=== PATIENT | female | born 1965 | race Caucasian/White ===

== ENCOUNTER → 2016-08-30 | Outpatient (CLI) | payer OTHER ==
[~2016-08-30] MED LIST: ATEN50TA8 PO; LISI20TA PO; MULTTAB58 PO; POTA-335 PO; SIMV20TA2 PO; SYN125 PO
--- NOTE | 2016-08-31 15:18 | MAMMOGRAPHY REPORT ---
BILATERAL DIGITAL SCREENING MAMMOGRAM TOMOSYNTHESIS WITH CAD: 08/30/2016 CLINICAL HISTORY: Routine screening. Patient has no complaints. TECHNIQUE: Breast tomosynthesis in addition to standard 2D mammography was performed. Current study was also evaluated with a Computer Aided Detection (CAD) system. COMPARISON: Comparison is made to exams dated: 07/10/2015 mammogram, 04/25/2013 mammogram, 07/01/2014 m ammogram, 03/28/2012 mammogram, 02/24/2011 mammogram, and 09/16/2009 mammogram - [facility]. BREAST COMPOSITION: There are scattered areas of fibroglandular density in both breasts. FINDINGS: There are benign-appearing rodlike, punctate and rim calcifications in the breasts. No conroy spicious mass, architectural distortion or cluster of new, suspicious microcalcifications is seen. IMPRESSION: ACR BI-RADS CATEGORY 1: NEGATIVE There is no mammographic evidence of malignancy. A 1 year screening mammogram is recommended. The p atient will receive written notification of the results. Approximately 10% of breast cancers are not detected with mammography. A negative mammographic repor t should not delay biopsy if a clinically suggestive mass is present. Ashley Main M.D. ay/:08/30/2016 17:03:23 Jewelry Maker: Edna ROCK(Vanesa)(M), [facility] letter sent: Normal 1/2 BI-RADS Code: ACR BI-RADS Category 1: Negative
== END | disposition home or self-care (01) ==
LOC: C.MAMM 13:20
PROVIDERS: ATTEND Family Medicine
DX: Z12.31 Encounter for screening mammogram for malignant neoplasm of breast (principal)

== ENCOUNTER → 2016-08-31 | Outpatient (CLI) | payer OTHER | END | disposition home or self-care (01) | LOC: C.PAPS 08:37 | PROVIDERS: ATTEND Obstetrics & Gynecology | DX: Z01.419 Encounter for gynecological examination (general) (routine) without abnormal findings (principal) ==

== ENCOUNTER → 2016-09-22 | Outpatient (CLI) | payer OTHER ==
[2016-09-22 17:51] LABS: BLOOD UREA NITROGEN 18 mg/dl (7-18); BUN/CREATININE RATIO 20.7 (10-20); CARBON DIOXIDE 32 mmol/L (21-32); CHLORIDE 104 mmol/L (98-107); CHOLESTEROL 191 mg/dl (0-200); CREATININE 0.87 mg/dl (0.60-1.20); GLUCOSE 96 mg/dl (70-99); MAGNESIUM 2.1 mg/dl (1.8-2.4); POTASSIUM 3.9 mmol/L (3.5-5.1); SODIUM 141 mmol/L (136-145); TRIGLYCERIDES 260 mg/dl (0-150); VERY LOW DENSITY LIPOPROT CALC 52 mg/dl
[2016-09-22 18:01] LABS: HDL CHOLESTEROL 38 mg/dl; LDL CHOLESTEROL CALCULATED 101 mg/dl
[2016-09-22 18:08] LABS: CALCIUM 10.8 mg/dl (8.5-10.1)
[2016-09-23 06:51] LABS: ESTIMATED AVERAGE GLUCOSE 134 mg/dl; HA1C FLAG Normal (Normal)
== END | disposition home or self-care (01) ==
LOC: C.LABPVFM 14:23
PROVIDERS: ATTEND Family Medicine
DX: E03.9 Hypothyroidism, unspecified (principal); I10 Essential (primary) hypertension; R25.2 Cramp and spasm; E78.2 Mixed hyperlipidemia; R73.09 Other abnormal glucose

== ENCOUNTER → 2016-10-01 | Outpatient (CLI) | payer OTHER ==
--- NOTE | 2016-10-01 13:16 | DIAGNOSTIC IMAGING REPORT ---
CT OF THE CHEST WITHOUT IV CONTRAST CLINICAL HISTORY: R91.1 Pulmonary nodule COMPARISON STUDY: July 16, 2010 CT DOSE: 492.81 mGycm TECHNIQUE: CT of the thorax was performed from the thoracic inlet to the lung bases. Images are reviewed in the axial, sagittal, and coronal planes. IV contrast was not administered for this examination. FINDINGS: Thyroid: Imaged portions of the thyroid gland are normal in appearance. Thoracic aorta: The ascending thoracic aorta measures 38 mm. Heart: The heart is normal in size. There are minor coronary artery calcifications. Lungs and pleural spaces: There are no pleural effusions. There is no focal pulmonary consolidation. There is a stable 4 mm right middle lobe pulmonary nodule additional tiny subpleural right lower lobe pulmonary nodules remain stable. A right paraspinal right lower lobe groundglass opacity is felt to be atelectatic. Mediastinum: There is no mediastinal lymphadenopathy. Anum: Clear. Axilla: Clear. Upper abdomen: Partially visualized upper abdominal viscera is within normal limits. Skeletal structures: There are no lytic or blastic osseous lesions. IMPRESSION: 1. No acute intrathoracic findings 2. Stable 4 mm right middle lobe pulmonary nodule 3. No evidence of focal pulmonary consolidation. No evidence of pathologic adenopathy. Electronically signed by: Filippo Gonsalez M.D. 10/01/2016 1:15 PM Dictated Date/Time: 10/01/2016 1:09 PM
== END | disposition home or self-care (01) ==
LOC: C.CTS 12:56
PROVIDERS: ATTEND Family Medicine
DX: R91.1 Solitary pulmonary nodule (principal)

== ENCOUNTER → 2017-03-05 | Outpatient (CLI) | payer OTHER ==
[2017-03-05 13:17] LABS: CALCIUM 9.2 mg/dl (8.5-10.1)
[2017-03-05 13:25] LABS: CHOLESTEROL/HDL RATIO 4.6
[2017-03-05 13:31] LABS: THYROID STIMULATING HORMONE 3.13 uIu/ml (0.300-4.500)
== END | disposition home or self-care (01) ==
LOC: C.LABPVFM 10:06
PROVIDERS: ATTEND Family Medicine
DX: Z00.00 Encounter for general adult medical examination without abnormal findings (principal); E78.2 Mixed hyperlipidemia; E83.52 Hypercalcemia; E03.9 Hypothyroidism, unspecified

== ENCOUNTER → 2017-08-15 | Day surgery (SDC) | payer OTHER ==
[2017-08-08 10:46] VITALS: Ht 170.2 cm; Wt 102.3 kg
[~2017-08-15] VITALS: Ht 170.2 cm; Wt 102.3 kg
[~2017-08-15] MED LIST changes: +CHOL2000 PO; +FLAX1CAP11 PO; +LEVO125T5 PO; +LIDOCAINE HCL 2% 2 ML VIAL (20MG/ML) ONE; +LISI-787 PO; -LISI20TA PO; +MULT-506 PO; -MULTTAB58 PO; +NAPR1TAB9 PO; +OMEG10007 PO; -POTA-335 PO; +POTA20TA16 PO; +PRLSR20 PO; +PROPOFOL IV EMULSION 10 MG/ML 20 ML VIAL IV ONE; +SODIUM CHLORIDE 0.9% 500ML 500 ML IV ONE; -SYN125 PO
--- NOTE | 2017-08-15 11:42 | Endo History and Physical ---
History & Physical Date of Service: Aug 15, 2017. Chief Complaint: RECTAL BLEEDING Referring Physician: DR DENNIS History of Present Illness 52 yo CM who presents for colonoscopy secondary to rectal bleeding. Past Surgical History Hx Cardiac Surgery: No Hx Internal Defibrillator: No Hx Pacemaker: No Hx Abdominal Surgery: Yes (D&C, , INGUINAL HERNIA, [place]) Hx of Implantable Prosthesis: No Hx Post-Op Nausea and Vomiting: No Hx Cancer Surgery: No Hx Thoracic Surgery: No Hx Orthopedic: Yes (LEFT KNEE ARTHROSCOPY) Hx Urinary Tract Surgery: No Family History Colon CA Social History Smoking Status: Never Smoker Hx Substance Use: No Hx Alcohol Use: Yes (RARELY (WHEN ON VACATION)) Allergies Coded Allergies: Penicillins (Verified Allergy, Mild, RASH, 08/15/17) Sulfa Drugs (Verified Allergy, Mild, RASH, 08/15/17) Current Medications Reported Home Medications Medications Dose Route/Sig Max Daily Dose Days Date Category Multivitamin (Multivitamins) Tab 1 Tab PO DAILY 08/08/17 Reported Vitamin D3 (Cholecalciferol) 2,000 Unit Cap 1 Cap PO DAILY 08/08/17 Reported Levothyroxine Sodium 125 Mcg Tab 1 Tab PO DAILY 08/08/17 Reported Zocor (Simvastatin) 20 Mg Tab 20 Mg PO DAILY 08/08/17 Reported Prilosec (Omeprazole) 20 Mg Capcr 20 Mg PO DAILY PRN 08/08/17 Reported Aleve (Naproxen) 220 Mg Tab 220 Mg PO BID 08/08/17 Reported Zestoretic 20MG/12.5MG (HCTZ/Lisinopril) Tab 1 Tab PO DAILY 08/08/17 Reported Klor-Con (Potassium Chloride) 20 Meq Tabcr 20 Meq PO DAILY 08/08/17 Reported Flax Seed Oil (Flaxseed (Linseed)) 1 Cap Cap 1 Cap PO DAILY 08/08/17 Reported [place]-3 (Fish Oil) 1 Ea Cap 1 Cap PO DAILY 08/08/17 Reported Tenormin (Atenolol) 50 Mg Tab 50 Mg PO DAILY 07/16/10 Reported Vital Signs Weight (Kilograms): 102.27 Height (Feet): 5 Height (Inches): 7 Date Time Temp Pulse Resp B/P (MAP) Pulse Ox O2 Delivery O2 Flow Rate FiO2 08/15/17 11:19 36.8 68 20 145/86 (105) 95 Room Air Physical Exam General Appearance: WD/WN, no apparent distress Respiratory/Chest: Auscultation: breath sounds normal Cardiovascular: Heart Auscultation: RRR Abdomen: Bowel Sounds: normal Inspection & Palpation: soft, non-distended, no tenderness, guarding & rebound Assessment and Plan Assessment: 52 yo CM who presents for colonoscopy secondary to rectal bleeding. Plan: Proceed with colonoscopy.
--- NOTE | 2017-08-15 12:39 | GI REPORT ---
Procedure Date: 08/15/2017 11:49 AM Procedure: Colonoscopy Indications: Rectal bleeding Medicines: Monitored Anesthesia Care Complications: No immediate complications. Estimated Blood Loss: Estimated blood loss: none. Procedure: Pre-Anesthesia Assessment: - Prior to the procedure, a History and Physical was performed, and patient medications and allergies were reviewed. The patient's tolerance of previous anesthesia was also reviewed. The risks and benefits of the procedure and the sedation options and risks were discussed with the patient. All questions were answered, and informed consent was obtained. Prior Anticoagulants: The patient has taken no previous anticoagulant or antiplatelet agents. ASA Grade Assessment: II - A patient with mild systemic disease. After reviewing the risks and benefits, the patient was deemed in satisfactory condition to undergo the procedure. After I obtained informed consent, the scope was passed under direct vision. Throughout the procedure, the patient's blood pressure, pulse, and oxygen saturations were monitored continuously. The scope was introduced through the anus and advanced to the terminal ileum. The colonoscopy was performed without difficulty. The patient tolerated the procedure well. The quality of the bowel preparation was good. The terminal ileum, ileocecal valve, appendiceal orifice, and rectum were photographed. Findings: The perianal and digital rectal examinations were normal. Multiple small-mouthed diverticula were found in the sigmoid colon. Non-bleeding internal hemorrhoids were found during retroflexion. The hemorrhoids were small. Impression: - Diverticulosis in the sigmoid colon. - Non-bleeding internal hemorrhoids. - No specimens collected. Recommendation: - Resume previous diet. - Continue present medications. - Repeat colonoscopy in 10 years for surveillance. - Return to primary care physician as previously scheduled. Aidan Al, 08/15/2017 12:38:43 PM This report has been signed electronically. Note Initiated On: 08/15/2017 11:49 AM I attest to the content of the Intraoperative Record and orders documented therein, exceptions below
--- NOTE | 2017-08-15 12:39 | Discharge Instructions ---
Endoscopy Patient Instructions Date / Procedure(s) Performed Aug 15, 2017. Colonoscopy Allergy Information Coded Allergies: Penicillins (Verified Allergy, Mild, RASH, 08/15/17) Sulfa Drugs (Verified Allergy, Mild, RASH, 08/15/17) Discharge Date / Findings Aug 15, 2017. Diverticulosis Interanal hemorrhoids Medication Instructions OK to resume all medications today as prescribed Reported Home Medications Medications Dose Route/Sig Max Daily Dose Days Date Category Multivitamin (Multivitamins) Tab 1 Tab PO DAILY 08/08/17 Reported Vitamin D3 (Cholecalciferol) 2,000 Unit Cap 1 Cap PO DAILY 08/08/17 Reported Levothyroxine Sodium 125 Mcg Tab 1 Tab PO DAILY 08/08/17 Reported Zocor (Simvastatin) 20 Mg Tab 20 Mg PO DAILY 08/08/17 Reported Prilosec (Omeprazole) 20 Mg Capcr 20 Mg PO DAILY PRN 08/08/17 Reported Aleve (Naproxen) 220 Mg Tab 220 Mg PO BID 08/08/17 Reported Zestoretic 20MG/12.5MG (HCTZ/Lisinopril) Tab 1 Tab PO DAILY 08/08/17 Reported Klor-Con (Potassium Chloride) 20 Meq Tabcr 20 Meq PO DAILY 08/08/17 Reported Flax Seed Oil (Flaxseed (Linseed)) 1 Cap Cap 1 Cap PO DAILY 08/08/17 Reported [place]-3 (Fish Oil) 1 Ea Cap 1 Cap PO DAILY 08/08/17 Reported Tenormin (Atenolol) 50 Mg Tab 50 Mg PO DAILY 07/16/10 Reported Provider Instructions Activity Restrictions - No exercising or heavy lifting for 24 hours. - Do not drink alcohol the day of the procedure. - Do not drive a car or operate machinery until the day after the procedure. - Do not make any important decisions or sign important papers in 24 hours after the procedure. Following Day: - Return to full activity which may include returning to work/school. Diet Start your diet with liquids and light foods (jello, soup, juice, toast). Then eat your usual diet if not nauseated. Treatment For Common After Affects For mild abdominal pain, bloating, or excessive gas: - Rest - Eat lightly - Lie on right side Follow-Up Information Follow-up with DR DENNIS as scheduled Anesthesia Information What You Should Know You have had a procedure that required some medicine to reduce anxiety and discomfort. This treatment is called moderate sedation. After receiving the treatment, you may be sleepy, but you will be able to breathe on your own. The effects of the treatment may last for several hours. Follow these instructions along with Activity/Diet recommendations noted above: * Do NOT do anything where dizziness or clumsiness would be dangerous. * Rest quietly at home today, then you can be up and about tomorrow. * Have a responsible person stay with you the rest of today. * You may have had an I.V. today. If so, you may take the dressing off later today. Recommendations Call your doctor if: * Trouble breathing * Continuous vomiting for more than 24 hours * Temperature above 101 degrees * Severe abdominal pain or bloating * Pain not relieved by pain medicine ordered * There is increased drainage or redness from any incision * A large amount of rectal bleeding greater than 2-3 tablespoons. (If you had a polyp/s removed or have hemorrhoids, a small amount of blood - from the rectum is to be expected.) * You have any unanswered questions or concerns. IN THE EVENT OF A SERIOUS EMERGENCY, GO TO THE NEAREST EMERGENCY ROOM Your discharge instructions were prepared by provider Aidan Al. Patient Instructions Signature Page Eileen Garcia Patient (or Guardian) Signature/Date: I have read and understand the instructions given to me by my caregivers. Caregiver/RN/Doctor Signature/Date: The above-named patient and/or guardian has received patient instructions on this date. + Original Patient Signature Page (only) stays with chart. Please make copy for patient.
[2017-08-15 13:04] VITALS: BP 146/80; PULSE 60; O2SAT 100
--- NOTE | 2017-08-15 13:12 | Anesthesiology Progress Note ---
Anesthesia Post Op Note Date & Time Aug 15, 2017 at 13:12 Vital Signs Pain Intensity: 0 Vital Signs Past 12 Hours Date Time Temp Pulse Resp B/P (MAP) Pulse Ox O2 Delivery O2 Flow Rate FiO2 08/15/17 13:04 60 18 146/80 (102) 100 Room Air 08/15/17 12:49 64 16 136/93 (107) 96 Room Air 08/15/17 12:34 67 16 125/77 (93) 97 Room Air 08/15/17 11:19 36.8 68 20 145/86 (105) 95 Room Air Notes Mental Status: alert / awake / arousable, participated in evaluation Pt Amnestic to Procedure: Yes Nausea / Vomiting: adequately controlled Pain: adequately controlled Airway Patency, RR, SpO2: stable & adequate BP & HR: stable & adequate Hydration State: stable & adequate Anesthetic Complications: no major complications apparent
== END | disposition home or self-care (01) ==
LOC: C.GI 10:32
PROVIDERS: ATTEND Internal Medicine
DX: K62.5 Hemorrhage of anus and rectum (principal); K57.30 Diverticulosis of large intestine without perforation or abscess without bleeding; K64.8 Other hemorrhoids; Z88.0 Allergy status to penicillin; Z88.2 Allergy status to sulfonamides; Z79.899 Other long term (current) drug therapy

== ENCOUNTER 2022-03-20 08:48 | Observation (INO) ==
[2022-03-20] MEDS ORDERED: SODIUM CHLORIDE 0.9% 500 ML IV STA (09:11)
--- NOTE | 2022-03-20 09:20 | Emergency Department Note ---
Impression & Plan Transaminitis ADMIT ED Provider Note HPI: The patient is a 56-year-old female who presents the emergency department with a chief complaint of upper abdominal pain and chest pain is been ongoing for the past 3 hours prior to arrival to the ED. patient states he woke up this morning with relatively severe pain over her epigastric area. States she also had some discomfort in her lower chest. Patient states she has had nausea but denies any vomiting. On arrival here to the ED the patient is hemodynamically stable, she is in no acute distress on my initial assessment and states that her pain is improved from previous. ROS: -GI: Acute onset epigastric pain *10 point review systems was conducted and is otherwise negative unless stated above *Outpatient medications and allergy history reviewed PE: General: Alert HEENT: Normocephalic, trachea midline Eyes: Extraocular eye movement is intact, no scleral erythema Pulmonary: Clear to auscultation bilaterally, no wheezing Cardio: Regular rate and rhythm GI: Abdomen is soft, moderate tenderness over the epigastrium to palpation without guarding or rigidity : No suprapubic tenderness MSK: No evidence of trauma or malformation of the extremities, no edema Skin: No evidence of rash Neuro: Alert, no focal deficits Psychiatric: Cooperative cod clerk: - An order was placed for continuous cardiac monitoring - Patient was noted to be in sinus rhythm with a rate of 68 EKG: Rate: 70 Rhythm: Normal sinus rhythm Intervals: QRS 138 ms, otherwise within normal limits ST changes: No ST elevation Time: 0900 Interventions provided in ED: -IV fluid bolus, patient declined analgesia Medical Decision Making: Patient presented to the emergency department with a chief complaint of epigas tric pain. She states that this pain was acute in onset this morning, she is noted to have a surgical history of a cholecystectomy. CT imaging of the chest as well as the abdomen pelvis was obtained that does not show any evidence of PE, no evidence of acute surgical abnormality within the abdomen or pelvis. Ultrasound imaging of the right upper quadrant was ordered that does show evidence of a slightly dilated common bile duct without any evidence of acute inflammatory disorder. Patient does have a mild transaminitis and bilirubin elevation at 2.2. On my reassessment the patient is resting comfortably in bed. EKG is reassuring, no acute ischemic changes are noted, troponin is negative x1. Given transaminitis with epigastric pain and slight dilation of common bile duct on ultrasound imaging, I do have concern for choledocholithiasis. I did discuss the patient's presentation with on-call gastroenterology, Dr. Vidales, who is in agreement and recommends admission for gastroenterology consultation, stating even if MRCP is negative at this point patient would require EUS or ERCP. Case was therefore discussed with the on-call hospitalist for [facility], Dr. Patten, and the patient was admitted in stable condition for further care. Diagnosis: 1. Acute onset epigastric pain 2. Transaminitis 3. Elevated bilirubin Disposition: Admission Goldy Mercado DO Emergency Medicine Past Med/Surg History Medical History Diverticulosis Hypertension Hypothyroidism Impaired fasting glucose Internal hemorrhoids Laryngopharyngeal reflux Low back pain Mixed hyperlipidemia Pulmonary nodule stable on CT 2017 - no additional imaging recommended Right knee DJD Surgical History History of section History of hernia repair History of hysterectomy History of knee surgery History of laparoscopic cholecystectomy History of tubal ligation S/P hysterectomy Family History Sister Colon cancer Grandmother Breast cancer FHx: deafness or hearing loss Aunt Lung cancer Ovarian cancer Father FHx: deafness or hearing loss Hypertension Cardiac disorder Prostate cancer Myocardial infarction Mother Cardiac disorder Hypertension Myocardial infarction Social History Smoking Status: Never smoker Second Hand Exposure: No; Hx Alcohol Use: No Hx Substance Use: No Preferred Language: Congolese Communication Ability: Effective Visual Impairment: No Limitations Hearing Ability: Normal marital status: Current Living Situation: Spouse current occupational status: employed current occupation: Self employed, dog boarding How many Children do You have: 2 Feels Safe at Home: Yes Childhood Exposure to Second-Hand Smoke: No caffeine: Yes (tea (1-2x's a week)) during the past year weight has: remained stable Dental Care, Regularly: Yes Physical Activity Frequency: Daily Seatbelt Use: always Sunscreen Use: Yes Allergies Allergies Allergy/AdvReac Type Severity Reaction Status Date / Time Penicillins Allergy Mild RASH Verified 01/27/21 12:57 Sulfa (Sulfonamide Allergy Mild RASH Verified 01/27/21 12:57 Antibiotics) Home Meds Home Medications Medication Instructions Recorded Confirmed omeprazole 20 mg capsule,delayed 20 mg PO BID #60 caps 01/13/19 01/27/21 release Previous Rx's Medication Instructions Recorded levothyroxine 100 mcg tablet 100 mcg PO DAILY #90 tabs 04/01/21 atenolol 50 mg tablet 50 mg PO DAILY #90 tabs 10/05/21 potassium chloride 20 mEq 20 meq PO DAILY #90 tabs 10/05/21 tablet,extended release simvastatin 20 mg tablet 20 mg PO DAILY #90 tabs 10/05/21 naproxen 500 mg tablet 500 mg PO BID PRN pain #60 tabs 10/28/21 lisinopril 20 1 tab PO DAILY #90 tabs 12/07/21 mg-hydrochlorothiazide 12.5 mg tablet Results & Data (ED) Vital Signs Vital Signs - 24 hr 03/20/22 08:51 03/20/22 09:17 03/20/22 10:53 Temperature 36.6 C Temperature Source Temporal Artery Scan Pulse Rate 75 Pulse Rate [Right Finger] 65 Respiratory Rate 18 Respiratory Effort / Characteristics Non-Labored Respiratory Depth Normal Blood Pressure 163/82 H Blood Pressure [Right Arm] 147/86 H Blood Pressure Mean 109 Blood Pressure Mean [Right Arm] 106 Blood Pressure Position Sitting Pulse Oximetry 96 Oxygen Delivery Method Room Air Room Air Sepsis Recent Fever Within 48 Hours No Sepsis New/Unexplained Change in Mental Status No Sepsis Action Taken by Nursing No Action Required Laboratory Data Result diagrams: 03/20/22 09:00 03/20/22 09:00 Lab Results 03/20/22 03/20/22 03/20/22 Range/Units 09:00 09:00 09:00 WBC 10.08 (4.8-10.8) K/ul RBC 4.39 (3.93-5.22) M/uL Hgb 14.3 (12.0-16.0) g/dl Hct 42.1 (34.1-44.9) % MCV 95.9 (80.0-100.0) fL MCH 32.6 (25.0-34.0) pg MCHC 34.0 (32.0-36.0) g/dL RDW Std Deviation 44.8 (36.4-46.3) fL RDW Coeff of Mary 12.6 (11.5-14.5) % Plt Count 233 (130-400) K/uL MPV 10.1 (9.4-12.3) fL Immature Gran % (Auto) 0.3 % Neut % (Auto) 79.3 % Lymph % (Auto) 10.8 % [place] % (Auto) 8.0 % Eos % (Auto) 1.4 % Baso % (Auto) 0.2 % Neut # (Auto) 7.99 H (1.4-6.5) K/uL Lymph # (Auto) 1.09 L (1.2-3.4) K/uL [place] # (Auto) 0.81 (0.24-0.82) K/uL Eos # (Auto) 0.14 (0-0.50) K/uL Baso # (Auto) 0.02 (0-0.2) K/uL Immature Gran # (Auto) 0.03 H (0.00-0.02) K/uL PT 10.3 (9.0-12.0) Seconds INR 1.0 (0.9-1.1) APTT 22.9 (21.0-31.0) Seconds PTT Ratio 0.8 Sodium 138 (136-145) mmol/L Potassium 3.8 (3.5-5.1) mmol/L Chloride 103 (98-107) mmol/L Carbon Dioxide 28 (21-32) mmol/L Anion Gap 7 (3-11) BUN 23 (6-23) mg/dl Creatinine 0.77 (0.6-1.2) mg/dl Est Cr Clr Drug Dosing 94.7 ml/min Est GFR ( Amer) 98.6 ml/min Est GFR (Non-Af Amer) 85.1 ml/min BUN/Creatinine Ratio 29.9 H (10-20) Glucose 137 H (70-99(Fasting)) mg/dl Calcium 9.5 (8.5-10.1) mg/dl Total Bilirubin 2.2 H (0.2-1.0) mg/dl AST 241 H (13-39) U/L ALT 123 H (7-52) U/L Alkaline Phosphatase 95 (34-104) U/L Troponin I High Sens 4.4 (0-14) pg/ml Total Protein 7.6 (6.0-8.3) gm/dl Albumin 4.3 (3.4-5.0) gm/dl Globulin 3.3 (2.5-4.0) gm/dl Albumin/Globulin Ratio 1.3 (0.9-2) Lipase 45 (11-82) U/L Administered Medications Discontinued Medications Sodium Chloride (Nss) 500 mls @ 999 mls/hr IV .Q31M STA Stop: 03/20/22 09:41 Last Infusion: 03/20/22 10:54 Dose: 0 mls/hr Documented By: Admin: 03/20/22 09:36 Dose: 999 mls/hr Documented By: ETIENNE Ioversol (Optiray 320 500ml) 115 ml IV ONCE ONE Stop: 03/20/22 10:14 Last Admin: 03/20/22 10:13 Dose: 115 ml Documented By: ROSALIND Imaging Data Radiologist's Impression: Abdomen/Pelvis CT 03/20/22 09:16 CT angio chest PE protocol, CT abd pelvis IV con only CT DOSE: 1869.91 mGy.cm HISTORY: 56 years-old Female with PE. Acute shortness of breath with chest and abdominal pain TECHNIQUE: Multiple CTA images of the chest were obtained after the intravenous administration of 115 ml Optiray. Coronal and sagittal MIPS were obtained from the axial data set and were submitted for review. All measurements were obtained according to NASCET criteria. CT abdomen and pelvis with IV contrast only also obtained. A dose lowering technique was utilized adhering to the principles of ALARA. COMPARISON: CT abdomen 06/26/2010, chest CT 10/01/2016. FINDINGS: CTA: Heart is normal in size. Moderate coronary artery calcifications. No pericardial effusion. No thoracic aortic aneurysm or dissection. Unremarkable pulmonary artery. CT CHEST: No thyroid nodule or lymphadenopathy. No pneumothorax, pleural effusion, airspace consolidation or overt pulmonary edema. Mild subsegmental bibasilar atelectasis. There are no suspicious pulmonary nodules or masses identified. Stable benign 4 mm right middle lobe nodule, image 142. Central airways are patent. Unremarkable soft tissues. Degenerative changes of the shoulders and spine. No acute fracture identified. CT ABDOMEN/PELVIS: No pneumatosis or pneumoperitoneum. Unremarkable spleen, pancreas and adrenal glands. Cholecystectomy. Unremarkable liver. Patency of the hepatic and portal veins. Unremarkable kidneys. No hydronephrosis. Partial distention of the urinary bladder with mild wall thickening. Hysterectomy. No adnexal mass lesion. Atherosclerosis of the aorta without aneurysm. No lymphadenopathy identified. Tiny hiatal hernia. No bowel obstruction or bowel wall thickening. Colonic diverticulosis. Mild small large bowel scattered air-fluid levels. No ascites or mesenteric inflammation. Unremarkable soft tissues. Degenerative changes of the spine, pelvis and hips. No acute fracture identified. IMPRESSION: 1. No acute thoracic, intra-abdominal or intrapelvic abnormality. 2. No pulmonary emboli. 3. No bowel obstruction or bowel wall thickening. 4. Additional findings as above. ACT 112: Negative or not required by law. The above report was generated using voice recognition software. It may contain grammatical, syntax or spelling errors. Electronically signed by: Edd Ho M.D. 03/20/2022 10:40 AM Chest CTA 03/20/22 09:16 CT angio chest PE protocol, CT abd pelvis IV con only CT DOSE: 1869.91 mGy.cm HISTORY: 56 years-old Female with PE. Acute shortness of breath with chest and abdominal pain TECHNIQUE: Multiple CTA images of the chest were obtained after the intravenous administration of 115 ml Optiray. Coronal and sagittal MIPS were obtained from the axial data set and were submitted for review. All measurements were obtained according to NASCET criteria. CT abdomen and pelvis with IV contrast only also obtained. A dose lowering technique was utilized adhering to the principles of ALARA. COMPARISON: CT abdomen 06/26/2010, chest CT 10/01/2016. FINDINGS: CTA: Heart is normal in size. Moderate coronary artery calcifications. No pericardial effusion. No thoracic aortic aneurysm or dissection. Unremarkable pulmonary artery. CT CHEST: No thyroid nodule or lymphadenopathy. No pneumothorax, pleural effusion, airspace consolidation or overt pulmonary edema. Mild subsegmental bibasilar atelectasis. There are no suspicious pulmonary nodules or masses identified. Stable benign 4 mm right middle lobe nodule, image 142. Central airways are patent. Unremarkable soft tissues. Degenerative changes of the shoulders and spine. No acute fracture identified. CT ABDOMEN/PELVIS: No pneumatosis or pneumoperitoneum. Unremarkable spleen, pancreas and adrenal glands. Cholecystectomy. Unremarkable liver. Patency of the hepatic and portal veins. Unremarkable kidneys. No hydronephrosis. Partial distention of the urinary bladder with mild wall thickening. Hysterectomy. No adnexal mass lesion. Atherosclerosis of the aorta without aneurysm. No lymphadenopathy identified. Tiny hiatal hernia. No bowel obstruction or bowel wall thickening. Colonic di verticulosis. Mild small large bowel scattered air-fluid levels. No ascites or mesenteric inflammation. Unremarkable soft tissues. Degenerative changes of the spine, pelvis and hips. No acute fracture identified. IMPRESSION: 1. No acute thoracic, intra-abdominal or intrapelvic abnormality. 2. No pulmonary emboli. 3. No bowel obstruction or bowel wall thickening. 4. Additional findings as above. ACT 112: Negative or not required by law. The above report was generated using voice recognition software. It may contain grammatical, syntax or spelling errors. Electronically signed by: Edd Ho M.D. 03/20/2022 10:40 AM Liver Ultrasound 03/20/22 10:47 US liver HISTORY: 56 years-old Female Transaminitis, eval for ductal dilation acutely elevated LFTs COMPARISON: CT abdomen and pelvis of same day TECHNIQUE: Multiple real-time sonographic images of the abdominal right upper quadrant were obtained assessing grayscale appearance and color flow FINDINGS: Pancreas is partially obscured by bowel gas. The liver measures 14.4 cm. No hepatic mass or marginal nodularity identified. Cholecystectomy. Common bile duct measures 9 mm. Imaged right kidney is unremarkable without hydronephrosis. IMPRESSION: Cholecystectomy with mild dilation of the common bile duct, presumably postoperative. ACT 112: Negative or not required by law. The above report was generated using voice recognition software. It may contain grammatical, syntax or spelling errors. Electronically signed by: Edd Ho M.D. 03/20/2022 11:49 AM Discharge Plan Visit Data Chief Complaint: Chest Pain Stated Complaint: CHEST PAIN,COLD SWEAT ED Provider: Goldy Mercado Discharge Problem: Transaminitis Forms Stand Alone Forms: [facility] Stand In Prescriptions Prescriptions: No Action levothyroxine 100 mcg tablet 100 mcg PO DAILY Qty: 90 3RF potassium chloride 20 mEq tablet extended release 20 meq PO DAILY Qty: 90 1RF atenolol 50 mg tablet 50 mg PO DAILY Qty: 90 1RF simvastatin 20 mg tablet 20 mg PO DAILY Qty: 90 1RF naproxen 500 mg tablet 500 mg PO BID PRN (Reason: pain) Qty: 60 3RF lisinopril-hydrochlorothiazide 20-12.5 mg tablet 1 tab PO DAILY Qty: 90 3RF omeprazole 20 mg capsule,delayed release(DR/EC) 20 mg PO BID Qty: 60 Referrals Referrals: Barb Sainz MD [Primary Care Provider] -
[2022-03-20 09:29] LABS: Basophils # (auto) 0.02 K/uL (0-0.2); Basophils % (auto) 0.2 %; Eosinophils # (auto) 0.14 K/uL (0-0.50); Eosinophils % (auto) 1.4 %; Hematocrit (blood only) 42.1 % (34.1-44.9); Hemoglobin 14.3 g/dl (12.0-16.0); Immature Granulocytes # (auto) 0.03 K/uL (0.00-0.02); Immature Granulocytes % (auto) 0.3 %; Lymphocytes # (auto) 1.09 K/uL (1.2-3.4); Lymphocytes % (auto) 10.8 %; Mean Corpuscular Hemoglobin 32.6 pg (25.0-34.0); Mean Corpuscular Volume 95.9 fL (80.0-100.0); Mean Platelet Volume 10.1 fL (9.4-12.3); Monocytes # (auto) 0.81 K/uL (0.24-0.82); Neutrophils # (auto) 7.99 K/uL (1.4-6.5); Neutrophils % (auto) 79.3 %; Platelet Count 233 K/uL (130-400); RDW Coefficient of Variation 12.6 % (11.5-14.5); RDW Standard Deviation 44.8 fL (36.4-46.3); Red Blood Count 4.39 M/uL (3.93-5.22); White Blood Count 10.08 K/ul (4.8-10.8)
[2022-03-20 09:42] LABS: Partial Thromboplastin Ratio 0.8; Partial Thromboplastin Time 22.9 Seconds (21.0-31.0); Prothrombin Time 10.3 Seconds (9.0-12.0)
[2022-03-20 09:50] LABS: Albumin Globulin Ratio 1.3 (0.9-2); Albumin Level 4.3 gm/dl (3.4-5.0); BUN Creatinine Ratio 29.9 (10-20); Bilirubin,Total 2.2 mg/dl (0.2-1.0); Calcium 9.5 mg/dl (8.5-10.1); Creatinine Clr Calc Pharmacy 94.7 ml/min; Est GFR (African American) 98.6 ml/min; Est GFR (Non-African American) 85.1 ml/min; Globulin 3.3 gm/dl (2.5-4.0); Potassium 3.8 mmol/L (3.5-5.1); Total Protein 7.6 gm/dl (6.0-8.3)
[2022-03-20 09:55] LABS: Troponin I High Sensitivity 4.4 pg/ml (0-14)
[2022-03-20] MEDS ORDERED: OPTIRAY 320 500ml IV ONE (10:13)
--- NOTE | 2022-03-20 10:43 | CT Scan Report ---
CT angio chest PE protocol, CT abd pelvis IV con only CT DOSE: 1869.91 mGy.cm HISTORY: 56 years-old Female with PE. Acute shortness of breath with chest and abdominal pain TECHNIQUE: Multiple CTA images of the chest were obtained after the intravenous administration of 115 ml Optiray. Coronal and sagittal MIPS were obtained from the axial data set and were submitted for review. All measurements were obtained according to NASCET criteria. CT abdomen and pelvis with IV c ontrast only also obtained. A dose lowering technique was utilized adhering to the principles of MAYURI Teixeira. COMPARISON: CT abdomen 06/26/2010, chest CT 10/01/2016. FINDINGS: CTA: Heart is normal in size. Moderate coronary artery calcifications. No pericardial effusion. No thoraci c aortic aneurysm or dissection. Unremarkable pulmonary artery. CT CHEST: No thyroid nodule or lymphadenopathy. No pneumothorax, pleural effusion, airspace consolidation or ov ert pulmonary edema. Mild subsegmental bibasilar atelectasis. There are no suspicious pulmonary nodul es or masses identified. Stable benign 4 mm right middle lobe nodule, image 142. Central airways are patent. Unremarkable soft tissues. Degenerative changes of the shoulders and spine. No acute fracture identified. CT ABDOMEN/PELVIS: No pneumatosis or pneumoperitoneum. Unremarkable spleen, pancreas and adrenal glands. Cholecystectomy . Unremarkable liver. Patency of the hepatic and portal veins. Unremarkable kidneys. No hydronephrosi s. Partial distention of the urinary bladder with mild wall thickening. Hysterectomy. No adnexal mass lesion. Atherosclerosis of the aorta without aneurysm. No lymphadenopathy identified. Tiny hiatal hernia. No bowel obstruction or bowel wall thickening. Colonic diverticulosis. Mild small large bowel scattered air-fluid levels. No ascites or mesenteric inflammation. Unremarkable soft tis sues. Degenerative changes of the spine, pelvis and hips. No acute fracture identified. IMPRESSION: 1. No acute thoracic, intra-abdominal or intrapelvic abnormality. 2. No pulmonary emboli. 3. No bowel obstruction or bowel wall thickening. 4. Additional findings as above. ACT 112: Negative or not required by law. The above report was generated using voice recognition software. It may contain grammatical, syntax o r spelling errors. Electronically signed by: Edd Ho M.D. 03/20/2022 10:40 AM
--- NOTE | 2022-03-20 11:51 | Ultrasound Report ---
US liver HISTORY: 56 years-old Female Transaminitis, eval for ductal dilation acutely elevated LFTs COMPARISON: CT abdomen and pelvis of same day TECHNIQUE: Multiple real-time sonographic images of the abdominal right upper quadrant were obtained assessing grayscale appearance and color flow FINDINGS: Pancreas is partially obscured by bowel gas. The liver measures 14.4 cm. No hepatic mass or marginal nodularity identified. Cholecystectomy. Common bile duct measures 9 mm. Imaged right kidney is unrema rkable without hydronephrosis. IMPRESSION: Cholecystectomy with mild dilation of the common bile duct, presumably postoperative. ACT 112: Negative or not required by law. The above report was generated using voice recognition software. It may contain grammatical, syntax o r spelling errors. Electronically signed by: Edd Ho M.D. 03/20/2022 11:49 AM
--- NOTE | 2022-03-20 12:22 | History & Physical Report ---
Date of Service March 20, 2022 Assessment & Plan (1) Transaminitis: Plan: Eileen is a 56-year-old female with a past medical history of cholecystectomy 10 years ago who presents with transaminitis and right upper quadrant abdominal pain suspicious for choledocholithiasis. Transaminitis, suspected choledocholithiasis S/p cholecystectomy 10 years ago Total bilirubin 2.2, AST 241, ALT 123 on admission; new elevations - US Liver: Cholecystectomy with mild dilation of the common bile duct, presumably postoperative. - CTA/CT-Ab/Pelv: 1. No acute thoracic, intra-abdominal or intrapelvic abnormality.2. No pulmonary emboli. 3. No bowel obstruction or bowel wall th ickening. MRCP pending, Ativan on-call for anxiety GI consulted. Anticipate ERCP. CMP daily Chest pain Patient did report a band of pain across her chest without radiation to the shoulder or associated diaphoresis/shortness of breath this morning with her episode of abdominal pain and nausea High-sensitivity troponin 4.4, EKG similar to 2012 with right bundle branch block but no ST segment changes or T wave inversions or morphology change. Chest is pain-free on admission No history of cardiac disease, or chest pain preceding this. She walks several blocks with dogs daily without exertional dyspnea or chest pain. 2-hour troponin ordered, if negative will continue on medical surgical. RCRI 0 points, class I risk, 3.9% overall. No history of ischemic heart disease, CHF, CVD, insulin use, or elevated creatinine Hypertension Patient should takes antihypertensives in the afternoon. Continue atenolol, lisinopril/hydrochlorothiazide. Hyperlipidemia Held simvastatin in the setting of transaminitis GERD Takes omeprazole intermittently at home, without recent use May use famotidine as needed if recurrent Hypothyroidism Continue Synthroid 100 mcg daily DVT prophylaxis: SCDs Diet: N.p.o. with meds, LR IV FM Disposition: Medical/surgical CODE STATUS: Full code. Surrogate decision maker would be has been emergency (2) Hypertension: (3) Hypothyroidism: (4) Laryngopharyngeal reflux: History of Present Illness Primary Care Provider: Barb Sainz MD Eileen Montes is a 56-year-old female with a past medical history of hypertension, hypothyroidism, impaired fasting glucose, hyperlipidemia, and pulmonary nodules who presented to the emergency department with upper abdominal and chest pain which began 3 hours prior to arrival. Admitting EKG showed normal sinus rhythm with right bundle branch block, no ST segment changes or T wave inversions and similar to prior EKG from 2012. Initial lab evaluation shows no leukocytosis, hemoglobin of 14.3, normal coagulation panel, normal potassium and sodium, creatinine admitting of 0.77 with a normal baseline although elevated BUN/creatinine ratio of 30, BSG 137. She has a new transaminitis with T bili 2.2, AST 241, and ALT 123 with alk phos 95. Lipase is 45. Liver ultrasound shows postcholecystectomy with mild dilation of common bile duct suspected postoperative change. Liver is without hepatic mass or nodularity. Chest CTA and CT A/P with contrast shows no acute intrathoracic, intra-abdominal, or intrapelvic abnormality. No PE. No bowel obstruction. Hepatic and portal veins are patent, liver is unremarkable. High-sensitivity troponin on admission is 4.4. No meal this AM Heartburn with meals increased in past few days +swats with episode, no fever/chills Abdomail pain in belly radiating into back exactly like when her gallbladder had to be taken out 10 years ago BMs 1x per day-every other day, no bloody/black BMs. Last colonoscopy less than 10 years ago, normal per pt and recommended for 10 year followup. No recent nausea/vomiting, no appetite this morning NO diarrhea recently HTN: takes atenolol and lisinopril/hctz. Takes in afternoon, has not taken today. Takes potassium in evening. Hypothyroidism synthroid 100mcg, took this morning HLD: simvastatin (takes in afternoon) GERD: Takes prilosec PRN, not taken recently. Uses tums intermittently. Medical History: Reviewed Medications: Reviewed. Surgical History: Reviewed Allergies: Reviewed. PCN, Sulfa. Rash. no lip swelling/airway involvement. Social History: Alcohol only on vacation, last with a wedding 3 weeks ago. No tobacco use. Code Status: Berry Garcia #[phone]. Full Code. Allergies Allergy/AdvReac Type Severity Reaction Status Date / Time Penicillins Allergy Mild RASH Verified 01/27/21 12:57 Sulfa (Sulfonamide Allergy Mild RASH Verified 01/27/21 12:57 Antibiotics) Home Medications Medication Instructions Recorded Confirmed Type omeprazole 20 mg capsule,delayed 20 mg PO BID #60 caps 01/13/19 01/27/21 History release levothyroxine 100 mcg tablet 100 mcg PO DAILY #90 tabs 04/01/21 Rx atenolol 50 mg tablet 50 mg PO DAILY #90 tabs 10/05/21 Rx potassium chloride 20 mEq 20 meq PO DAILY #90 tabs 10/05/21 Rx tablet,extended release simvastatin 20 mg tablet 20 mg PO DAILY #90 tabs 10/05/21 Rx naproxen 500 mg tablet 500 mg PO BID PRN pain #60 tabs 10/28/21 Rx lisinopril 20 1 tab PO DAILY #90 tabs 12/07/21 Rx mg-hydrochlorothiazide 12.5 mg tablet Past Med/Surg History Medical History Diverticulosis Hypertension Hypothyroidism Impaired fasting glucose Internal hemorrhoids Laryngopharyngeal reflux Low back pain Mixed hyperlipidemia Pulmonary nodule stable on CT 2017 - no additional imaging recommended Right knee DJD Surgical History History of section History of hernia repair History of hysterectomy History of knee surgery History of laparoscopic cholecystectomy History of tubal ligation S/P hysterectomy Family History Sister Colon cancer Grandmother Breast cancer FHx: deafness or hearing loss Aunt Lung cancer Ovarian cancer Father FHx: deafness or hearing loss Hypertension Cardiac disorder Prostate cancer Myocardial infarction Mother Cardiac disorder Hypertension Myocardial infarction Social History Smoking Status: Never smoker Second Hand Exposure: No; Hx Alcohol Use: No Hx Substance Use: No Preferred Language: Welsh Communication Ability: Effective Visual Impairment: No Limitations Hearing Ability: Normal marital status: Current Living Situation: Spouse current occupational status: employed current occupation: Self employed, dog boarding How many Children do You have: 2 Feels Safe at Home: Yes Childhood Exposure to Second-Hand Smoke: No caffeine: Yes (tea (1-2x's a week)) during the past year weight has: remained stable Dental Care, Regularly: Yes Physical Activity Frequency: Daily Seatbelt Use: always Sunscreen Use: Yes Review of Systems Review of Systems: All systems reviewed & are unremarkable except as noted in HPI & below Physical Exam Physical Exam: General: A&Ox3. NAD. Cooperative. HEENT: Atraumatic, normocephalic. Vision/hearing grossly intact, PERLAA. Pulm: CTAB A&P. -wheezes, -rales, -rhonchi. Symmetrical chest rise. No increased work of breathing. No respiratory distress. Cardiac: RRR, -mrg. Radial pulses intact and symmetrical. Abdominal: TTP at RUQ without guarding/rebound. nondistended, soft. BS present. Ext: Warm, dry. Moving renetta xtremities equally. Cap refill brisk in thumbs bilat. Results & Data Results & Data ([facility]) Vital Signs (Past 12 Hours) Vital Signs Temp Pulse Pulse Resp BP BP Pulse Ox 03/20/22 10:53 65 147/86 H 03/20/22 09:17 03/20/22 08:51 36.6 C 75 18 163/82 H 96 O2 Del Method 03/20/22 10:53 03/20/22 09:17 Room Air 03/20/22 08:51 Room Air PG Care Time/CCT Total # of Minutes Spent Total Time Spent with Patient: Total time spent is greater than 50% in coordination of care (as documented) at patient's floor/unit and/or counseling patient: Coding Level of Care Code INT OBSERVATION CARE 70M LVL 3 Diagnoses Transaminitis R74.01 Hypertension I10 Hypothyroidism E03.9 Laryngopharyngeal reflux K21.9
[2022-03-20] MEDS ORDERED: LISINOPRIL/HCTZ 20/12.5MG 1 TAB TAB PO SCH (15:20)
[2022-03-20] MEDS ORDERED: LORazepam 1 MG TAB PO PRN (15:20)
[2022-03-20] MEDS ORDERED: ATENOLOL 50 MG TABLET PO SCH (15:20)
[2022-03-20] MEDS ORDERED: POTASSIUM CHLORIDE CRTAB 20 MEQ TABCR PO SCH (15:20)
[2022-03-20] MEDS ORDERED: ONDANSETRON INJ 2 MG/ML 2 ML VIAL IV PRN (15:20)
[2022-03-20] MEDS ORDERED: MAGNESIUM HYDROXIDE SUSP 30 ML UDC PO PRN (15:20)
[2022-03-20] MEDS: LACTATED RINGER'S 1,000 ML IV SCH (15:39)
--- NOTE | 2022-03-20 17:36 | Magnetic Resonance Report ---
MR MRCP HISTORY: 56 years-old Female ?choledoco acute nausea with mid abdominal pain COMPARISON: CT and abdominal ultrasound studies of same day TECHNIQUE: MRCP without the use of IV contrast was obtained. FINDINGS: Procurement Cost Coordinator localizer images demonstrate no gross extra abdominal abnormality. Lumbar levoscoliosis. Lower chest is unremarkable. Motion degraded exam. Unremarkable spleen, pancreas, adrenal glands and liver. No bowel obstruction or bowel wall thickening. Cholecystectomy. No pancreatic ductal dilation or espinoza creatic divisum. Common bile duct measures up to 9 mm. No biliary stricture or choledocholithiasis. U nremarkable kidneys. IMPRESSION: 1. Motion degraded exam. 2. Cholecystectomy with likely postsurgical mild biliary ductal dilation redemonstrated. 3. No choledocholithiasis identified. ACT 112: Negative or not required by law. The above report was generated using voice recognition software. It may contain grammatical, syntax o r spelling errors. Electronically signed by: Edd Ho M.D. 03/20/2022 5:33 PM
[2022-03-20] MEDS: ACETAMINOPHEN 325 MG TAB PO PRN (19:17)
[2022-03-21] MEDS: LACTATED RINGER'S 1,000 ML IV SCH ×3 (00:19→18:35)
[2022-03-21] MEDS: LEVOTHYROXINE SODIUM 100 MCG TABLET PO SCH (06:06)
[2022-03-21 06:18] LABS: Basophils # (auto) 0.01 K/uL (0-0.2); Basophils % (auto) 0.3 %; Eosinophils # (auto) 0.28 K/uL (0-0.50); Eosinophils % (auto) 7.3 %; Hematocrit (blood only) 38.3 % (34.1-44.9); Immature Granulocytes # (auto) 0.01 K/uL (0.00-0.02); Immature Granulocytes % (auto) 0.3 %; Lymphocytes # (auto) 1.49 K/uL (1.2-3.4); Lymphocytes % (auto) 38.8 %; Mean Corpuscular Hgb Conc 33.9 g/dL (32.0-36.0); Mean Corpuscular Volume 94.3 fL (80.0-100.0); Monocytes # (auto) 0.47 K/uL (0.24-0.82); Monocytes % (auto) 12.2 %; Neutrophils # (auto) 1.58 K/uL (1.4-6.5); Neutrophils % (auto) 41.1 %; Platelet Count 207 K/uL (130-400); RDW Coefficient of Variation 12.9 % (11.5-14.5); RDW Standard Deviation 44.2 fL (36.4-46.3); Red Blood Count 4.06 M/uL (3.93-5.22); White Blood Count 3.84 K/ul (4.8-10.8)
[2022-03-21 06:24] LABS: INR 1.1 (0.9-1.1); Prothrombin Time 11.2 Seconds (9.0-12.0)
[2022-03-21 06:44] LABS: Alanine Aminotransferase 253 U/L (7-52); BUN Creatinine Ratio 14.5 (10-20); Bilirubin,Total 1.1 mg/dl (0.2-1.0); Blood Urea Nitrogen 11 mg/dl (6-23); Calcium 8.9 mg/dl (8.5-10.1); Carbon Dioxide 29 mmol/L (21-32); Chloride 106 mmol/L (98-107); Creatinine Clr Calc Pharmacy 95.9 ml/min; Est GFR (African American) 100.2 ml/min; Est GFR (Non-African American) 86.5 ml/min; Glucose 106 mg/dl (70-99(Fasting)); Total Protein 6.7 gm/dl (6.0-8.3)
[2022-03-21] MEDS ORDERED: Nursing to Pharmacy Communication SCH (07:45)
[2022-03-21 07:48] LABS: Albumin Level 3.7 gm/dl (3.4-5.0); Potassium 3.8 mmol/L (3.5-5.1)
--- NOTE | 2022-03-21 12:34 | History & Physical Bridge Note ---
Date of Service March 21, 2022 History & Physical Bridge Note I have examined the patient, reviewed the History & Physical and in the interval since the performance of the History & Physical I have noted the following changes of clinical significance: no changes noted EUS/ERCP Patient was explained in detail regarding risks, benefits, limitations and alternatives of the above endoscopic procedure. Risks of intravenous sedation used for procedure were also explained. Risks include, but not limited to perfo ration, bleeding, infection, respiratory distress, cardiac arrest and . Patient is also aware about the possibility of missed lesion. Patient's questions were answered. The patient verbalized understanding the information and agreed to undergo the procedure.
[2022-03-21] MEDS ORDERED: PROPOFOL IV EMULSION 10 MG/ML 20 ML VIAL IV ONE (12:47)
[2022-03-21] MEDS ORDERED: fentaNYL citrate 100 MCG/2 ML VIAL ONE (12:48)
[2022-03-21] MEDS ORDERED: MIDAZOLAM HCL 1 MG/ML 2ML VIAL ONE (12:48)
[2022-03-21] MEDS ORDERED: ONDANSETRON INJ 2 MG/ML 2 ML VIAL ONE (12:51)
[2022-03-21] MEDS ORDERED: LIDOCAINE 2% 20 MG/ML 5 ML SYR IV ONE (12:51)
[2022-03-21] MEDS ORDERED: HYDROmorphone INJ 2 MG/ML SYR/VIAL IV PRN (12:59)
[2022-03-21] MEDS ORDERED: ePHEDrine sulfate 50 MG/ML AMP IV PRN (12:59)
[2022-03-21] MEDS ORDERED: fentaNYL citrate 100 MCG/2 ML VIAL IV PRN (12:59)
[2022-03-21] MEDS ORDERED: ATROPINE SULFATE 0.1 MG/ML 10ML SYR IV PRN (12:59)
--- NOTE | 2022-03-21 12:59 | Anesthesiology Consultation ---
Date of Service March 21, 2022 Assessment & Plan Chart Review Chart Review: Acceptable Risk for Surgery and Patient NOT seen in Pre Admission Testing ASA ASA3 Proposed Anesthesia Anesthesia Type: General Risk / Benefits Reviewed With: PT / POA / Parent / Guardian, Accepts Plan and Informed Consent Obtained History Surgery Operation Date: 03/21/22 11:00 Proposed Procedures p Endoscopic Retrograde Cholangiopancreato - Genaro Vidales MD Height/Weight Height: 5 ft 7 in Weight: 95.9 kg Allergies Allergy/AdvReac Type Severity Reaction Status Date / Time Penicillins Allergy Mild RASH Verified 01/27/21 12:57 Sulfa (Sulfonamide Allergy Mild RASH Verified 01/27/21 12:57 Antibiotics) Medications Home Medications Medication Instructions Recorded Confirmed Last Taken omeprazole 20 mg capsule,delayed 20 mg PO BID PRN Heartburn #60 caps 01/13/19 03/20/22 Unknown release levothyroxine 100 mcg tablet 100 mcg PO DAILY #90 tabs 04/01/21 03/20/2203/20 atenolol 50 mg tablet 50 mg PO DAILY #90 tabs 10/05/21 03/20/22 03/19/22 potassium chloride 20 mEq 20 meq PO DAILY #90 tabs 10/05/21 03/20/22 03/19/22 tablet,extended release simvastatin 20 mg tablet 20 mg PO DAILY #90 tabs 10/05/21 03/20/22 03/19/22 naproxen 500 mg tablet 500 mg PO BID PRN pain #60 tabs 10/28/21 03/20/22 Unknown lisinopril 20 1 tab PO DAILY #90 tabs 12/07/21 03/20/22 03/19/22 mg-hydrochlorothiazide 12.5 mg tablet Active Medications Generic Name Dose Route Start Last Admin Trade Name Freq PRN Reason Stop Dose Admin Acetaminophen 650 mg 03/20/22 15:20 03/20/22 19:17 Acetaminophen 325 Mg Tab PO 04/19/22 15:19 650 mg Q4H PRN Administration pain/fever Lactated Ringer's 1,000 mls @ 125 mls/hr 03/20/22 15:20 03/21/22 07:42 Lr IV 04/19/22 15:19 125 mls/hr .Q8H KRZYSZTOF Administration Levothyroxine Sodium 100 mcg 03/21/22 06:30 03/21/22 06:06 Levothyroxine Sodium 100 Mcg Tablet PO 04/20/22 06:29 100 mcg DAILYBB KRZYSZTOF Administration Lorazepam 1 mg 03/20/22 15:20 03/20/22 15:42 Lorazepam 1 Mg Tab PO 04/19/22 15:19 1 mg DAILY PRN Administration For Anxiety with MRI NPO Date Last Intake of Fluids: 03/20/22 Time Last Intake of Fluids: 23:00 Date Last Intake of Solids: 03/20/22 Time Last Intake of Solids: 22:00 Past Medical History Medical History Diverticulosis Hypertension Hypothyroidism Impaired fasting glucose Internal hemorrhoids Laryngopharyngeal reflux Low back pain Mixed hyperlipidemia Pulmonary nodule stable on CT 2017 - no additional imaging recommended Right knee DJD Exercise / Class Metabolic Activity II 4-5 Yardwork/Stairs/Walk up hill Past Family History Family History Sister Colon cancer Grandmother Breast cancer FHx: deafness or hearing loss Aunt Lung cancer Ovarian cancer Father FHx: deafness or hearing loss Hypertension Cardiac disorder Prostate cancer Myocardial infarction Mother Cardiac disorder Hypertension Myocardial infarction Past Surgical History Surgical History History of section History of hernia repair History of hysterectomy History of knee surgery History of laparoscopic cholecystectomy History of tubal ligation S/P hysterectomy Past Anesthesia History No Hx of Anesthesia Complications and No Family Hx of Anesthesia Complications History of PONV No Hx of PONV and No Hx of Motion Sickness Social History Smoking Status: Never smoker Hx Alcohol Use: Yes Alcohol type: hard liquor alcohol intake frequency: holidays/special occasions only Hx Substance Use: No Review of Systems ROS Unobtainable: All systems reviewed & are unremarkable except as noted in HPI & below Constitutional: as per Subjective / HPI Eyes: as per Subjective / HPI Ear, Nose, Mouth, Throat: as per Subjective / HPI Respiratory: as per Subjective / HPI Cardiovascular: as per Subjective / HPI LBP stone in duct Musculoskeletal: as per Subjective / HPI Integumentary: as per Subjective / HPI Neurologic: as per Subjective / HPI Psychiatric: as per Subjective / HPI Endocrine: as per Subjective / HPI Hematologic / Lymphatic: as per Subjective / HPI Allergy / Immunological: as per Subjective / HPI Physical Exam Vital Signs Last Vital Signs Temp 36.5 C 03/21/22 07:27 Pulse 57 L 03/21/22 07:27 Resp 16 03/21/22 07:27 BP 144/74 H 03/21/22 07:27 Pulse Ox 93 03/21/22 07:27 O2 Del Method 03/21/22 07:27 Constitutional + obese ENMT Mouth: no TMJ abnormality Thyromental Distance: > or= 3.5 Finger Breadths Mallampati Class: II Neck normal visual inspection Respiratory normal respiratory effort Cardiovascular Rate/Rhythm: regular rate and regular rhythm Musculoskeletal Spine: normal cervical ROM Neurologic moves all extremities Psychiatric Orientation: alert and oriented x 3 Testing Laboratory Results 03/21/22 05:42 03/21/22 06:48 PT 11.2 Seconds (9.0-12.0) 03/21/22 05:42 INR 1.1 (0.9-1.1) 03/21/22 05:42 APTT 22.9 Seconds (21.0-31.0) 03/20/22 09:00
[2022-03-21] MEDS ORDERED: ROCURONIUM BROMIDE 10 MG/ML 5 ML VIAL IV ONE (13:27)
--- NOTE | 2022-03-21 13:41 | Operative Report ---
Post Operative Report Pre & Post Diagnosis Operation Date: 03/21/22 11:00 Pre-Op Diagnosis: TRANSAMINITIS Post-Op Diagnosis: TRANSAMINITIS I identified the patient and participated in the time-out.: Yes Procedure Operation Date: 03/21/22 11:00 Actual Procedures p Endoscopic Retrograde cholangiopancreatography, Upper gastrointestinal endoscopy/Endoscopic ultrasound (Not Applicable) - Genaro Vidales MD Surgeon Genaro Vidales MD Photo Mask Processor None Estimated Blood Loss 0 Findings See Below (SOD with biliary sludge, sphincterotomy and sweep done) Specimens None Description of Procedure EUS/ERCP I attest to the content of the Intraoperative Record and any orders documented therein. Any exceptions are noted below.
[2022-03-21] MEDS ORDERED: NEOSTIGMINE METHYLSULFATE 1 MG/ML 10ML VIAL ONE (13:42)
[2022-03-21] MEDS ORDERED: GLYCOPYRROLATE 0.2 MG/ML VIAL ONE (13:42)
[2022-03-21] MEDS: INDOMETHACIN 50 MG SUPP PR ONE ×2 (13:45→14:56)
[2022-03-21] MEDS ORDERED: CIPROFLOXACIN / D5W 400 MG/200 ML BAG IV STA (13:54)
--- NOTE | 2022-03-21 13:55 | GI REPORT ---
Patient Name: Eileen Garcia Procedure Date: 03/21/2022 12:16 PM Date of : 1965 Admit Type: Inpatient Age: 56 Gender: Female Attending MD: Genaro Vidales MD Procedure: Upper GI endoscopy Providers: Genaro Vidales MD Referring MD: Lauri Hoskins Indications: Abdominal pain Medicines: General Anesthesia Complications: No immediate complications. Estimated Blood Loss: Estimated blood loss: none. Procedure: Pre-Anesthesia Assessment: - Prior to the procedure, a History and Physical was performed, and patient medications, allergies and sensitivities were reviewed. The patient's tolerance of previous anesthesia was reviewed. - The risks and benefits of the procedure and the sedation options and risks were discussed with the patient. All questions were answered and informed consent was obtained. - Patient identification and proposed procedure were verified prior to the procedure by the physician and the nurse. The procedure was verified in the procedure room. - Pre-procedure physical examination revealed no contraindications to sedation. After obtaining informed consent, the endoscope was passed under direct vision. Throughout the procedure, the patient's blood pressure, pulse, and oxygen saturations were monitored continuously. The Endoscope was introduced through the mouth, and advanced to the second part of duodenum. The upper GI endoscopy was accomplished without difficulty. The patient tolerated the procedure well. Findings: The examined esophagus was normal. The entire examined stomach was normal. The duodenal bulb and second portion of the duodenum were normal. Impression: - Normal esophagus. - Normal stomach. - Normal duodenal bulb and second portion of the duodenum. - No specimens collected. Recommendation: - Perform an upper endoscopic ultrasound (UEUS) today. Genaro Vidales MD 03/21/2022 1:55:19 PM This report has been signed electronically. Note Initiated On: 03/21/2022 12:16 PM Number of Addenda: 0 I attest to the content of the Intraoperative Record and orders documented therein, exceptions below {[id number]}
--- NOTE | 2022-03-21 13:58 | GI REPORT ---
Patient Name: Eileen Garcia Procedure Date: 03/21/2022 12:25 PM Date of : 1965 Admit Type: Inpatient Age: 56 Gender: Female Attending MD: Genaro Vidales MD Procedure: Upper EUS Providers: Genaro Vidales MD Referring MD: Lauri Hoskins Indications: Common bile duct dilation (acquired) seen on MRCP, Elevated liver enzymes Medicines: Propofol per Anesthesia Complications: No immediate complications. Estimated Blood Loss: Estimated blood loss: none. Procedure: Pre-Anesthesia Assessment: - Prior to the procedure, a History and Physical was performed, and patient medications, allergies and sensitivities were reviewed. The patient's tolerance of previous anesthesia was reviewed. - The risks and benefits of the procedure and the sedation options and risks were discussed with the patient. All questions were answered and informed consent was obtained. - Patient identification and proposed procedure were verified prior to the procedure by the physician and the nurse. The procedure was verified in the procedure room. - Pre-procedure physical examination revealed no contraindications to sedation. After obtaining informed consent, the endoscope was passed under direct vision. Throughout the procedure, the patient's blood pressure, pulse, and oxygen saturations were monitored continuously. The Loaner was introduced through the mouth, and advanced to the second part of duodenum. The upper EUS was accomplished without difficulty. The patient tolerated the procedure well. Findings: ENDOSONOGRAPHIC FINDING: : There was no sign of significant endosonographic abnormality in the ampulla. No masses were identified. There was dilation in the common bile duct which measured up to 11 mm. One stone was visualized endosonographically in the common bile duct. The stone measured 2 mm in greatest dimension. It was hyperechoic. Evidence of a previous cholecystectomy was identified endosonographically. There was no sign of significant endosonographic abnormality in the visualized portion of the liver. Homogeneous parenchyma was identified. Pancreatic parenchymal abnormalities were noted in the entire pancreas. These consisted of hyperechoic strands and hyperechoic foci. There was no sign of significant endosonographic abnormality in the visualized portion of the left adrenal gland. There was no sign of significant endosonographic abnormality involving the celiac trunk. Impression: - There was no sign of significant pathology in the ampulla. - There was dilation in the common bile duct which measured up to 11 mm. - One stone was visualized endosonographically in the common bile duct. - Evidence of a cholecystectomy. - There was no evidence of significant pathology in the visualized portion of the liver. - Pancreatic parenchymal abnormalities consisting of hyperechoic strands and hyperechoic foci were noted in the entire pancreas. - Endosonographic images of the left adrenal gland were unremarkable. - The celiac trunk was endosonographically normal. Recommendation: - Perform an ERCP today. Genaro Vidales MD 03/21/2022 1:58:27 PM This report has been signed electronically. Note Initiated On: 03/21/2022 12:25 PM Number of Addenda: 0 I attest to the content of the Intraoperative Record and orders documented therein, exceptions below {[id number]}
--- NOTE | 2022-03-21 13:59 | Fluoroscopy Report ---
[place] ERCP biliary ductal CLINICAL HISTORY: ERCP COMPARISON STUDY: CT of the abdomen and pelvis and MRCP March 20, 2022. FLUOROSCOPY TIME: 26 seconds. FLUOROSCOPIC IMAGES: 6 FINDINGS: Fluoroscopy was provided during ERCP. Pancreatic duct stent was placed. Balloon sweep throu gh the common bile duct was performed. IMPRESSION: Fluoroscopy provided during ERCP. ACT 112: Negative or not required by law. Electronically signed by: Quan Sainz M.D. 03/21/2022 1:58 PM
[2022-03-21] MEDS ORDERED: LISINOPRIL/HCTZ 20/12.5MG 1 TAB TAB PO SCH (14:00)
[2022-03-21] MEDS ORDERED: POTASSIUM CHLORIDE CRTAB 20 MEQ TABCR PO SCH (14:00)
[2022-03-21] MEDS ORDERED: ATENOLOL 50 MG TABLET PO SCH (14:00)
--- NOTE | 2022-03-21 14:03 | GI REPORT ---
Patient Name: Eileen Garcia Procedure Date: 03/21/2022 12:26 PM Date of : 1965 Admit Type: Inpatient Age: 56 Gender: Female Attending MD: Genaro Vidales MD Procedure: ERCP Providers: Genaro Vidales MD Referring MD: Lauri Hoskins Indications: For therapy of bile duct stone(s), Elevated liver enzymes, For therapy of Sphincter of Oddi dysfunction/spasm Medicines: General Anesthesia Complications: No immediate complications. Estimated Blood Loss: Estimated blood loss: none. Procedure: Pre-Anesthesia Assessment: - Prior to the procedure, a History and Physical was performed, and patient medications, allergies and sensitivities were reviewed. The patient's tolerance of previous anesthesia was reviewed. - The risks and benefits of the procedure and the sedation options and risks were discussed with the patient. All questions were answered and informed consent was obtained. - Patient identification and proposed procedure were verified prior to the procedure by the physician and the nurse. The procedure was verified in the procedure room. - Pre-procedure physical examination revealed no contraindications to sedation. After obtaining informed consent, the scope was passed under direct vision. Throughout the procedure, the patient's blood pressure, pulse, and oxygen saturations were monitored continuously. The Duodenoscope was introduced through the mouth, and advanced to the duodenum and used to inject contrast into the bile duct. The ERCP was accomplished without difficulty. The patient tolerated the procedure well. Findings: A heavy equipment technician film of the abdomen was obtained. Surgical clips, consistent with a previous cholecystectomy, were seen in the area of the right upper quadrant of the abdomen. The esophagus was successfully intubated under direct vision. The scope was advanced to a normal major papilla in the descending duodenum without detailed examination of the pharynx, larynx and associated structures, and upper GI tract. The upper GI tract was grossly normal. The ventral pancreatic duct was inadvertently cannulated with the short-nosed traction sphincterotome and guidewire without any complications. A 0.025 inch x 270 cm angled Visiglide wire was passed into the biliary tree. The CleverCut distal wire sphincterotome was passed over the guidewire and the bile duct was then deeply cannulated. Contrast was injected. I personally interpreted the bile duct images. Ductal flow of contrast was adequate. Image quality was adequate. Contrast extended to the main bile duct. Opacification of the entire biliary tree except for the gallbladder was successful. The maximum diameter of the ducts was 12 mm. The biliary orifice was stenotic. This appeared benign. Biliary sphincterotomy was made with a monofilament traction (standard) sphincterotome using ERBE electrocautery. There was no post-sphincterotomy bleeding. The biliary tree was swept with a 12 mm balloon starting at the bifurcation. One stone was removed. No stones remained. Indomethacin 100 mg was given via suppository to decrease the risk of post-ERCP pancreatitis (PEP). One 5 Fr by 9 cm plastic pancreatic stent with a single external pigtail and no internal flaps was placed into the ventral pancreatic duct. Clear fluid flowed through the stent. The stent was in good position. Impression: - Choledocholithiasis was found. Complete removal was accomplished by biliary sphincterotomy and balloon extraction. - One plastic pancreatic stent was placed into the ventral pancreatic duct and Indomethacin given to decrease risk of post-ERCP pancreatitis. Recommendation: - [facility]. - Clear liquid diet today, then advance as tolerated to advance diet as tolerated. - Perform abdominal x-ray in 4 weeks to check migration of the PD stent, if not then will need EGD for removal. Genaro Vidales MD 03/21/2022 2:03:15 PM This report has been signed electronically. Note Initiated On: 03/21/2022 12:26 PM Number of Addenda: 0 I attest to the content of the Intraoperative Record and orders documented therein, exceptions below {[id number]}
--- NOTE | 2022-03-21 14:39 | Anesthesiology Progress Note ---
Date of Service March 21, 2022 Anesthesia Post Procedure Vital Signs Vital Signs: Temp Pulse Pulse Resp BP Pulse Ox O2 Del Method 03/21/22 14:15 53 L 17 158/85 H 100 Oxymask 03/21/22 14:05 63 16 156/87 H 97 Oxymask 03/21/22 13:56 36.3 C L 70 18 158/86 H 97 Oxymask 03/21/22 07:27 36.5 C 57 L 16 144/74 H 93 Room Air 03/20/22 23:02 36.3 C L 53 L 16 146/76 H 96 Room Air 03/20/22 14:50 36.9 C 66 18 168/88 H 97 Room Air O2 Flow Rate 03/21/22 14:15 3 03/21/22 14:05 3 03/21/22 13:56 5 03/21/22 07:27 03/20/22 23:02 03/20/22 14:50 Pain Intensity Abdomen: Pain Intensity: 8 Transfer of Care Handoff Completed per policy Notes Mental Status: alert / awake / arousable and participated in evaluation Patient Amnestic to Procedure: Yes Nausea / Vomiting: adequately controlled Pain: adequately controlled Airway Patency, RR, SpO2: stable & adequate BP & HR: stable & adequate Hydration State: stable & adequate Anesthetic Complications: no major complications apparent and Pt Satisfied with anesthetic care
[2022-03-21] MEDS: ACETAMINOPHEN 325 MG TAB PO PRN (15:53)
--- NOTE | 2022-03-21 17:05 | Gastrointestinal Consultation ---
Date of Consultation March 20, 2022 Assessment & Plan (1) Transaminitis: EUS/ERCP Patient was explained in detail regarding risks, benefits, limitations and alternatives of the above endoscopic procedure. Risks of intravenous sedation used for procedure were also explained. Risks include, but not limited to perforation, bleeding, infection, respiratory distress, cardiac arrest and . Patient is also aware about the possibility of missed lesion. Patient's questions were answered. The patient verbalized understanding the information and agreed to undergo the procedure. (2) Dilated cbd, acquired: History of Present Illness Reason for Consultation: Abnormal LFTs Attending Physician: Lauri Hoskins History of Present Illness 56 years old female patient presented with abdominal pain, nausea and labs showed elevated LFTs and imaging showed dilated CBD. Reports Hx of cholecystectomy in the past. Pain is similar to her prior GB related pain. No fever or chills. No diarrhea or weight loss. Allergies Allergy/AdvReac Type Severity Reaction Status Date / Time Penicillins Allergy Mild RASH Verified 01/27/21 12:57 Sulfa (Sulfonamide Allergy Mild RASH Verified 01/27/21 12:57 Antibiotics) Home Medications Medication Instructions Recorded Confirmed Type omeprazole 20 mg capsule,delayed 20 mg PO BID PRN Heartburn #60 caps 01/13/19 03/20/22 History release levothyroxine 100 mcg tablet 100 mcg PO DAILY #90 tabs 04/01/21 03/20/22 Rx atenolol 50 mg tablet 50 mg PO DAILY #90 tabs 10/05/21 03/20/22 Rx potassium chloride 20 mEq 20 meq PO DAILY #90 tabs 10/05/21 03/20/22 Rx tablet,extended release simvastatin 20 mg tablet 20 mg PO DAILY #90 tabs 10/05/21 03/20/22 Rx naproxen 500 mg tablet 500 mg PO BID PRN pain #60 tabs 10/28/21 03/20/22 Rx lisinopril 20 1 tab PO DAILY #90 tabs 12/07/21 03/20/22 Rx mg-hydrochlorothiazide 12.5 mg tablet Patient History Medical History Diverticulosis Hypertension Hypothyroidism Impaired fasting glucose Internal hemorrhoids Laryngopharyngeal reflux Low back pain Mixed hyperlipidemia Pulmonary nodule stable on CT 2016 - no additional imaging recommended Right knee DJD Surgical History History of section History of hernia repair History of hysterectomy History of knee surgery History of laparoscopic cholecystectomy History of tubal ligation S/P hysterectomy Family History Sister Colon cancer Grandmother Breast cancer FHx: deafness or hearing loss Aunt Lung cancer Ovarian cancer Father FHx: deafness or hearing loss Hypertension Cardiac disorder Prostate cancer Myocardial infarction Mother Cardiac disorder Hypertension Myocardial infarction Social History Smoking Status: Never smoker Second Hand Exposure: No; Hx Alcohol Use: Yes Alcohol type: hard liquor Hx Substance Use: No Preferred Language: Uzbek Communication Ability: Effective Visual Impairment: No Limitations 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: No Beliefs That Will Affect Care: None marital status: Current Living Situation: Spouse current occupational status: employed current occupation: Self employed, dog boarding How many Children do You have: 2 Other Information That Helps Us Care for You: No Feels Safe at Home: Yes Safety Concerns: Feels Safe At This Time Childhood Exposure to Second-Hand Smoke: No caffeine: Yes (tea (1-2x's a week)) during the past year weight has: remained stable Dental Care, Regularly: Yes Physical Activity Frequency: Daily Seatbelt Use: always Sunscreen Use: Yes Assistive Devices: None Review of Systems Constitutional: no fever, no chills, no fatigue and no weight loss Eyes: no eye pain and no worsening vision Ear, Nose, Mouth, Throat: no tinnitus, no dizziness, no nasal discharge and no epistaxis Respiratory: no cough, no dyspnea, no dyspnea on exertion and no wheezing Cardiovascular: no chest pain, no orthopnea, no palpitations and no edema Gastrointestinal: as per Subjective / HPI Genitourinary: no dysuria, no urinary frequency, no urinary incontinence and no hematuria Musculoskeletal: no stiffness and no myalgia Neurologic: no localized weakness, no paralysis, no tremor(s) and no headache(s) Endocrine: no polydipsia and no polyuria Hematologic / Lymphatic: no easy bleeding and no night sweats Physical Exam Constitutional: + well hydrated, cooperative and comfortable Eyes: PERRL, conjunctivae normal, anicteric sclerae ENMT: external ear and nose normal, oropharynx normal Neck: normal visual inspection and trachea midline Respiratory: normal respiratory effort, lungs clear to auscultation Auscultation: no wheezes Cardiovascular: RRR, no murmur, no edema Gastrointestinal (Abdomen): normal bowel sounds, soft, nontender, no hepatosplenomegaly Musculoskeletal: no cyanosis or clubbing, extremities motor strength 5/5 Skin: no rashes, warm and dry Neurologic: awake; no focal motor deficits Motor/Sensory: no tremor Results & Data ([facility]) Vital Signs (Past 12 Hours) Vital Signs Temp Pulse Pulse Resp BP BP Pulse Ox 03/21/22 16:31 36.5 C 48 L 16 173/97 H 95 03/21/22 14:54 36.9 C 43 L 16 172/92 H 91 03/21/22 14:15 53 L 17 158/85 H 100 03/21/22 14:05 63 16 156/87 H 97 03/21/22 13:56 36.3 C L 70 18 158/86 H 97 03/21/22 07:27 36.5 C 57 L 16 144/74 H 93 O2 Del Method O2 Flow Rate 03/21/22 16:31 Nasal Cannula 1 03/21/22 14:54 Room Air 03/21/22 14:15 Oxymask 3 03/21/22 14:05 Oxymask 3 03/21/22 13:56 Oxymask 5 03/21/22 07:27 Room Air Laboratory Results Laboratory Results - last 24 hr 03/21/22 03/21/22 03/21/22 05:42 05:42 05:42 WBC 3.84 L D RBC 4.06 Hgb 13.0 Hct 38.3 MCV 94.3 MCH 32.0 MCHC 33.9 RDW Std Deviation 44.2 RDW Coeff of Mary 12.9 Plt Count 207 MPV 10.0 Immature Gran % (Auto) 0.3 Neut % (Auto) 41.1 Lymph % (Auto) 38.8 [place] % (Auto) 12.2 Eos % (Auto) 7.3 Baso % (Auto) 0.3 Neut # (Auto) 1.58 Lymph # (Auto) 1.49 [place] # (Auto) 0.47 Eos # (Auto) 0.28 Baso # (Auto) 0.01 Immature Gran # (Auto) 0.01 PT 11.2 INR 1.1 Sodium TNP Potassium TNP Chloride 106 Carbon Dioxide 29 Anion Gap TNP BUN 11 Creatinine 0.76 Est Cr Clr Drug Dosing 95.9 Est GFR ( Amer) 100.2 Est GFR (Non-Af Amer) 86.5 BUN/Creatinine Ratio 14.5 Glucose 106 H Calcium 8.9 Total Bilirubin 1.1 H AST TNP ALT 253 H Alkaline Phosphatase TNP Total Protein 6.7 Albumin TNP Globulin TNP Albumin/Globulin Ratio TNP 03/21/22 06:48 WBC RBC Hgb Hct MCV MCH MCHC RDW Std Deviation RDW Coeff of Mary Plt Count MPV Immature Gran % (Auto) Neut % (Auto) Lymph % (Auto) [place] % (Auto) Eos % (Auto) Baso % (Auto) Neut # (Auto) Lymph # (Auto) [place] # (Auto) Eos # (Auto) Baso # (Auto) Immature Gran # (Auto) PT INR Sodium 139 Potassium 3.8 Chloride Carbon Dioxide Anion Gap BUN Creatinine Est Cr Clr Drug Dosing Est GFR ( Amer) Est GFR (Non-Af Amer) BUN/Creatinine Ratio Glucose Calcium Total Bilirubin AST 176 H ALT Alkaline Phosphatase 97 Total Protein Albumin 3.7 Globulin Albumin/Globulin Ratio
[2022-03-21] MEDS ORDERED: PROMETHAZINE HCL 12.5 MG in SODIUM CHLORIDE 0.9% 50 ML IV STA (17:55)
--- NOTE | 2022-03-21 19:59 | Hospitalist Progress Note ---
Date of Service March 21, 2022 Assessment & Plan (1) Choledocholithiasis with obstruction: Plan: Following my AM visit she was taken to the OR with Dr Vidales for endoscopic u/s followed by ERCP. Both confirmed the presence of a CBD stone. There was no evidence of cholangitis during the ERCP. Stone was removed, and a pancreatic duct stent was placed. Post-op clear liquids were started. Cont IV fluids overnight. Repeat labs in am. (2) Abnormal LFTs: Plan: 2nd to #1 above. LFTs should improve now that the CBD stone has been removed via ERCP. Repeat LFTs in am. Appreciate Dr Vidales's assistance. (3) Hypertension: Plan: Cont home meds BPs mildly high - likely due to pain - follow (4) Hypothyroidism: Plan: TSH 01/2021 was wnl will repeat a TSH in am cont synthroid in meantime (5) Laryngopharyngeal reflux: Plan: resume PPI in am Plan defer on chemical DVT proph due to ERCP today change observation status to full admission status due to #1 above Admission and Anticipated Discharge Date Admission Date: March 21, 2022 Subjective I saw the patient prior to going for ERCP. She still had mild upper abdominal pain but improved from time of admission. No fevers/chills. No vomiting overnight. Pain is identical to the type of pain she had with her cholecystitis years ago. Review of Systems Review of Systems: gen - no fevers/chills cv - no orthopnea, no cp pulm - no dyspnea, no cough GI - no vomiting Physical Exam Physical Exam: gen - NAD eyes - sclera anicteric neck - no JVD mouth - MMM heart - RRR, s1 s2, no murmur lungs - CTA b/l abd - soft ND; mildly tender high epigastric region and RUQ; no peritoneal signs; BS+ ext - no edema, pulses 2+ b/l skin - no jaundice Results & Data Results & Data ([facility]) Vital Signs (Past 12 Hours) Vital Signs Temp Pulse Pulse Resp BP BP Pulse Ox 03/21/22 16:31 36.5 C 48 L 16 173/97 H 95 03/21/22 14:54 36.9 C 43 L 16 172/92 H 91 03/21/22 14:15 53 L 17 158/85 H 100 03/21/22 14:05 63 16 156/87 H 97 10/30/22 13:56 36.3 C L 70 18 158/86 H 97 O2 Del Method O2 Flow Rate 03/21/22 16:31 Nasal Cannula 1 03/21/22 14:54 Room Air 03/21/22 14:15 Oxymask 3 03/21/22 14:05 Oxymask 3 03/21/22 13:56 Oxymask 5 Laboratory Results Laboratory Results - last 24 hr 03/21/22 03/21/22 03/21/22 05:42 05:42 05:42 WBC 3.84 L D RBC 4.06 Hgb 13.0 Hct 38.3 MCV 94.3 MCH 32.0 MCHC 33.9 RDW Std Deviation 44.2 RDW Coeff of Mary 12.9 Plt Count 207 MPV 10.0 Immature Gran % (Auto) 0.3 Neut % (Auto) 41.1 Lymph % (Auto) 38.8 [place] % (Auto) 12.2 Eos % (Auto) 7.3 Baso % (Auto) 0.3 Neut # (Auto) 1.58 Lymph # (Auto) 1.49 [place] # (Auto) 0.47 Eos # (Auto) 0.28 Baso # (Auto) 0.01 Immature Gran # (Auto) 0.01 PT 11.2 INR 1.1 Sodium TNP Potassium TNP Chloride 106 Carbon Dioxide 29 Anion Gap TNP BUN 11 Creatinine 0.76 Est Cr Clr Drug Dosing 95.9 Est GFR ( Amer) 100.2 Est GFR (Non-Af Amer) 86.5 BUN/Creatinine Ratio 14.5 Glucose 106 H Calcium 8.9 Total Bilirubin 1.1 H AST TNP ALT 253 H Alkaline Phosphatase TNP Total Protein 6.7 Albumin TNP Globulin TNP Albumin/Globulin Ratio TNP 03/21/22 06:48 WBC RBC Hgb Hct MCV MCH MCHC RDW Std Deviation RDW Coeff of Mary Plt Count MPV Immature Gran % (Auto) Neut % (Auto) Lymph % (Auto) [place] % (Auto) Eos % (Auto) Baso % (Auto) Neut # (Auto) Lymph # (Auto) [place] # (Auto) Eos # (Auto) Baso # (Auto) Immature Gran # (Auto) PT INR Sodium 139 Potassium 3.8 Chloride Carbon Dioxide Anion Gap BUN Creatinine Est Cr Clr Drug Dosing Est GFR ( Amer) Est GFR (Non-Af Amer) BUN/Creatinine Ratio Glucose Calcium Total Bilirubin AST 176 H ALT Alkaline Phosphatase 97 Total Protein Albumin 3.7 Globulin Albumin/Globulin Ratio PG Care Time/CCT Total # of Minutes Spent Total Time Spent with Patient: Total time spent is greater than 50% in coordination of care (as documented) at patient's floor/unit and/or counseling patient: Coding Level of Care Code 16060 Subseq Hosp Care Lvl 2 Diagnoses Choledocholithiasis with obstruction K80.51 Abnormal LFTs R79.89 Hypertension I10 Hypothyroidism E03.9 Laryngopharyngeal reflux K21.9
--- NOTE | 2022-03-21 20:42 | Electrocardiogram Report ---
Test Reason : Blood Pressure : / mmHG Vent. Rate : 070 BPM Atrial Rate : 070 BPM P-R Int : 160 ms QRS Dur : 138 ms QT Int : 434 ms P-R-T Axes : 047 046 004 degrees QTc Int : 468 ms Normal sinus rhythm Right bundle branch block Abnormal ECG When compared with ECG of 04-JAN-2012 19:59, No significant change was found Confirmed by Alistair Flynn ([id number]) on 03/21/2022 8:41:42 PM Referred By: REFERRED SELF Confirmed By:Alistair Flynn
[2022-03-22] MEDS: LACTATED RINGER'S 1,000 ML IV SCH ×2 (02:41→11:07)
[2022-03-22] MEDS: LEVOTHYROXINE SODIUM 100 MCG TABLET PO SCH (06:17)
[2022-03-22 08:41] LABS: Basophils # (auto) 0.02 K/uL (0-0.2); Basophils % (auto) 0.4 %; Eosinophils # (auto) 0.24 K/uL (0-0.50); Eosinophils % (auto) 4.8 %; Hematocrit (blood only) 34.6 % (34.1-44.9); Immature Granulocytes # (auto) 0.01 K/uL (0.00-0.02); Immature Granulocytes % (auto) 0.2 %; Lymphocytes # (auto) 2.15 K/uL (1.2-3.4); Lymphocytes % (auto) 43.3 %; Mean Corpuscular Hgb Conc 34.7 g/dL (32.0-36.0); Mean Corpuscular Volume 92.3 fL (80.0-100.0); Monocytes # (auto) 0.51 K/uL (0.24-0.82); Monocytes % (auto) 10.3 %; Neutrophils # (auto) 2.03 K/uL (1.4-6.5); Platelet Count 203 K/uL (130-400); RDW Coefficient of Variation 12.2 % (11.5-14.5); RDW Standard Deviation 41.7 fL (36.4-46.3); Red Blood Count 3.75 M/uL (3.93-5.22); White Blood Count 4.96 K/ul (4.8-10.8)
[2022-03-22] MEDS ORDERED: PANTOprazole 40 MG TAB PO SCH (09:00)
[2022-03-22 09:06] LABS: Albumin Globulin Ratio 1.4 (0.9-2); Albumin Level 3.6 gm/dl (3.4-5.0); BUN Creatinine Ratio 13.4 (10-20); Bilirubin,Total 0.9 mg/dl (0.2-1.0); Calcium 8.9 mg/dl (8.5-10.1); Creatinine Clr Calc Pharmacy 108.8 ml/min; Est GFR (African American) 112.3 ml/min; Est GFR (Non-African American) 96.9 ml/min; Globulin 2.6 gm/dl (2.5-4.0); Potassium 3.6 mmol/L (3.5-5.1); Total Protein 6.2 gm/dl (6.0-8.3)
--- NOTE | 2022-03-22 10:37 | Gastroenterology Progress Note ---
Date of Service March 22, 2022 Assessment & Plan (1) Choledocholithiasis with obstruction: Plan: Resolved w ERCP Plan Needs abd x-ray in 4 wks and if pancreatic stent has not migrated, will need to be removed endoscopically. Our office will contact the pt to arrange. May advance diet. No indication of infection so no GI need for antibiotics on discharge. GI will sign off. No GI contraindication to discharge. Admission and Anticipated Discharge Date Admission Date: March 21, 2022 Subjective 56-year-old female admitted on 1030 for abdominal pain. Post distant cholecystectomy. Imaging and labs were suggestive of choledocholithiasis. Underwent ERCP yesterday with sphincterotomy and balloon extraction of a stone. A pancreatic stent was placed Today sitting up, drinking clear liquid diet with no nausea denies any current abdominal pain. Had a bit of nausea most recently last evening resolved with Zofran. Afebrile. No leukocytosis. LFTs improved today. Review of Systems Constitutional: no fever, no chills, no fatigue and no weight loss Eyes: no eye pain and no worsening vision Ear, Nose, Mouth, Throat: no tinnitus, no dizziness, no nasal discharge and no epistaxis Respiratory: no cough, no dyspnea, no dyspnea on exertion and no wheezing Cardiovascular: no chest pain, no orthopnea, no palpitations and no edema Gastrointestinal: as per Subjective / HPI Genitourinary: no dysuria, no urinary frequency, no urinary incontinence and no hematuria Musculoskeletal: no stiffness and no myalgia Neurologic: no localized weakness, no paralysis, no tremor(s) and no headache(s) Endocrine: no polydipsia and no polyuria Hematologic / Lymphatic: no easy bleeding and no night sweats Physical Exam Constitutional: WD/WN, vitals as above Eyes: PERRL, conjunctivae normal, anicteric sclerae ENMT: external ear and nose normal, oropharynx normal Neck: trachea midline, no thyromegaly Respiratory: normal respiratory effort, lungs clear to auscultation Cardiovascular: RRR, no murmur, no edema Gastrointestinal (Abdomen): normal bowel sounds, soft, nontender, no hepatosplenomegaly Neurologic: PERRL, EOMI, accommodation nl, no face palsy, no dysarthria Psychiatric: A+Ox3, euthymic affect Lymphatic: no cervical or axillary lymphadenopathy Results & Data ([facility]) Vital Signs (Past 12 Hours) Vital Signs Temp Pulse Resp BP Pulse Ox O2 Del Method 03/22/22 07:31 36.8 C 58 L 14 155/80 H 95 Room Air Laboratory Results He bili 0.9, AST 66, ALT 151, alk phos 78 WBC 4.9, Hb 12, HCT 34, PLT S203, NA 140, K3.6, CL 107, CO2 28, BUN 9, CR 0.6, glucose 108. Diagnostic Findings ERCP 03/21/22: - Choledocholithiasis was found. Complete removal was accomplished by biliary sphincterotomy and balloon extraction. - One plastic pancreatic stent was placed into the ventral pancreatic duct and Indomethacin given to decrease risk of post-ERCP pancreatitis. EUS 03/11: - There was dilation in the common bile duct which measured up to 11 mm. - One stone was visualized endosonographically in the common bile duct. CTA Chest Abd/Svlzus35/29/22: . No acute thoracic, intra-abdominal or intrapelvic abnormality. 2. No pulmonary emboli. 3. No bowel obstruction or bowel wall thickening. 4. Additional findings as above.
--- NOTE | 2022-03-22 12:16 | Discharge Summary ---
Date of Service date of admission - March 20, 2022 date of discharge - March 22, 2022 Admission HPI Per Admitting Provider Eileen Montes is a 56-year-old female with a past medical history of hypertension, hypothyroidism, impaired fasting glucose, hyperlipidemia, and pulmonary nodules who presented to the emergency department with upper abdominal and chest pain which began 3 hours prior to arrival. Admitting EKG showed normal sinus rhythm with right bundle branch block, no ST segment changes or T wave inversions and similar to prior EKG from 2012. Initial lab evaluation shows no leukocytosis, hemoglobin of 14.3, normal coagulation panel, normal potassium and sodium, creatinine admitting of 0.77 with a normal baseline although elevated BUN/creatinine ratio of 30, BSG 137. She has a new transaminitis with T bili 2.2, AST 241, and ALT 123 with alk phos 95. Lipase is 45. Liver ultrasound shows postcholecystectomy with mild dilation of common bile duct suspected postoperative change. Liver is without hepatic mass or nodularity. Chest CTA and CT A/P with contrast shows no acute intrathoracic, intra-abdominal, or intrapelvic abnormality. No PE. No bowel obstruction. Hepatic and portal veins are patent, liver is unremarkable. High-sensitivity troponin on admission is 4.4. No meal this AM Heartburn with meals increased in past few days +swats with episode, no fever/chills Abdomail pain in belly radiating into back exactly like when her gallbladder had to be taken out 10 years ago BMs 1x per day-every other day, no bloody/black BMs. Last colonoscopy less than 10 years ago, normal per pt and recommended for 10 year followup. No recent nausea/vomiting, no appetite this morning NO diarrhea recently Principal Diagnosis Choledocholithiasis Discharge Exam gen - NAD, looks good today eyes - sclera anicteric neck - no JVD mouth - MMM heart - RRR, s1 s2, no murmur lungs - CTA b/l abd - soft ND NT BS+; no peritoneal signs; no HSM ext - no edema, pulses 2+ b/l skin - no jaundice Discharge Data Allergies Allergy/AdvReac Type Severity Reaction Status Date / Time Penicillins Allergy Mild RASH Verified 01/27/21 12:57 Sulfa (Sulfonamide Allergy Mild RASH Verified 01/27/21 12:57 Antibiotics) Consultations [facility] - Genaro Vidales MD Procedures Performed Operation Date: 03/21/22 11:00 Actual Procedures p Endoscopic Retrograde cholangiopancreatography(Not Applicable) - Genaro Vidales MD s Esophagogastroduodenoscopy(Not Applicable) - MD esa Royal Endoscopic Ultrasonography Upper(Not Applicable) - Genaro Vidales MD Endoscopic Ultrasound: Findings - There was no sign of significant endosonographic abnormality in the ampulla. No masses were identified. There was dilation in the common bile duct which measured up to 11 mm. One stone was visualized endosonographically in the common bile duct. The stone measured 2 mm in greatest dimension. It was hyperechoic. Evidence of a previous cholecystectomy was identified endosonographically. There was no sign of significant endosonographic abnormality in the visualized portion of the liver. Homogeneous parenchyma was identified. Pancreatic parenchymal abnormalities were noted in the entire pancreas. These consisted of hyperechoic strands and hyperechoic foci. There was no sign of significant endosonographic abnormality in the visualized portion of the left adrenal gland. There was no sign of significant endosonographic abnormality involving the celiac trunk. ERCP: Impression: - Choledocholithiasis was found. Complete removal was accomplished by biliary sphincterotomy and balloon extraction. - One plastic pancreatic stent was placed into the ventral pancreatic duct and Indomethacin given to decrease risk of post-ERCP pancreatitis. Recommendation: - Perform abdominal x-ray in 4 weeks to check migration of the PD stent, if not then will need EGD for removal. Ordered Studies Abdomen/Pelvis CT 03/20/22 09:16 CT angio chest PE protocol, CT abd pelvis IV con only CT DOSE: 1869.91 mGy.cm HISTORY: 56 years-old Female with PE. Acute shortness of breath with chest and abdominal pain TECHNIQUE: Multiple CTA images of the chest were obtained after the intravenous administration of 115 ml Optiray. Coronal and sagittal MIPS were obtained from the axial data set and were submitted for review. All measurements were obtained according to NASCET criteria. CT abdomen and pelvis with IV contrast only also obtained. A dose lowering technique was utilized adhering to the principles of ALARA. COMPARISON: CT abdomen 06/26/2010, chest CT 10/01/2016. FINDINGS: CTA: Heart is normal in size. Moderate coronary artery calcifications. No pericardial effusion. No thoracic aortic aneurysm or dissection. Unremarkable pulmonary artery. CT CHEST: No thyroid nodule or lymphadenopathy. No pneumothorax, pleural effusion, airspace consolidation or overt pulmonary edema. Mild subsegmental bibasilar atelectasis. There are no suspicious pulmonary nodules or masses identified. Stable benign 4 mm right middle lobe nodule, image 142. Central airways are patent. Unremarkable soft tissues. Degenerative changes of the shoulders and spine. No acute fracture identified. CT ABDOMEN/PELVIS: No pneumatosis or pneumoperitoneum. Unremarkable spleen, pancreas and adrenal glands. Cholecystectomy. Unremarkable liver. Patency of the hepatic and portal veins. Unremarkable kidneys. No hydronephrosis. Partial distention of the urinary bladder with mild wall thickening. Hysterectomy. No adnexal mass lesion. Atherosclerosis of the aorta without aneurysm. No lymphadenopathy identified. Tiny hiatal hernia. No bowel obstruction or bowel wall thickening. Colonic diverticulosis. Mild small large bowel scattered air-fluid levels. No ascites or mesenteric inflammation. Unremarkable soft tissues. Degenerative changes of the spine, pelvis and hips. No acute fracture identified. IMPRESSION: 1. No acute thoracic, intra-abdominal or intrapelvic abnormality. 2. No pulmonary emboli. 3. No bowel obstruction or bowel wall thickening. 4. Additional findings as above. ACT 112: Negative or not required by law. The above report was generated using voice recognition software. It may contain grammatical, syntax or spelling errors. Electronically signed by: Edd Ho M.D. 03/20/2022 10:40 AM Chest CTA 03/20/22 09:16 CT angio chest PE protocol, CT abd pelvis IV con only CT DOSE: 1869.91 mGy.cm HISTORY: 56 years-old Female with PE. Acute shortness of breath with chest and abdominal pain TECHNIQUE: Multiple CTA images of the chest were obtained after the intravenous administration of 115 ml Optiray. Coronal and sagittal MIPS were obtained from the axial data set and were submitted for review. All measurements were obtained according to NASCET criteria. CT abdomen and pelvis with IV contrast only also obtained. A dose lowering technique was utilized adhering to the principles of ALARA. COMPARISON: CT abdomen 06/26/2010, chest CT 10/01/2016. FINDINGS: CTA: Heart is normal in size. Moderate coronary artery calcifications. No pericardial effusion. No thoracic aortic aneurysm or dissection. Unremarkable pulmonary artery. CT CHEST: No thyroid nodule or lymphadenopathy. No pneumothorax, pleural effusion, airspace consolidation or overt pulmonary edema. Mild subsegmental bibasilar atelectasis. There are no suspicious pulmonary nodules or masses identified. Stable benign 4 mm right middle lobe nodule, image 142. Central airways are patent. Unremarkable soft tissues. Degenerative changes of the shoulders and spine. No acute fracture identified. CT ABDOMEN/PELVIS: No pneumatosis or pneumoperitoneum. Unremarkable spleen, pancreas and adrenal glands. Cholecystectomy. Unremarkable liver. Patency of the hepatic and portal veins. Unremarkable kidneys. No hydronephrosis. Partial distention of the urinary bladder with mild wall thickening. Hysterectomy. No adnexal mass lesion. Atherosclerosis of the aorta without aneurysm. No lymphadenopathy identified. Tiny hiatal hernia. No bowel obstruction or bowel wall thickening. Colonic diverticulosis. Mild small large bowel scattered air-fluid levels. No ascites or mesenteric inflammation. Unremarkable soft tissues. Degenerative changes of the spine, pelvis and hips. No acute fracture identified. IMPRESSION: 1. No acute thoracic, intra-abdominal or intrapelvic abnormality. 2. No pulmonary emboli. 3. No bowel obstruction or bowel wall thickening. 4. Additional findings as above. ACT 112: Negative or not required by law. The above report was generated using voice recognition software. It may contain grammatical, syntax or spelling errors. Electronically signed by: Edd Ho M.D. 03/20/2022 10:40 AM Liver Ultrasound 03/20/22 10:47 US liver HISTORY: 56 years-old Female Transaminitis, eval for ductal dilation acutely elevated LFTs COMPARISON: CT abdomen and pelvis of same day TECHNIQUE: Multiple real-time sonographic images of the abdominal right upper quadrant were obtained assessing grayscale appearance and color flow FINDINGS: Pancreas is partially obscured by bowel gas. The liver measures 14.4 cm. No hepatic mass or marginal nodularity identified. Cholecystectomy. Common bile duct measures 9 mm. Imaged right kidney is unremarkable without hydronephrosis. IMPRESSION: Cholecystectomy with mild dilation of the common bile duct, presumably postoperative. ACT 112: Negative or not required by law. The above report was generated using voice recognition software. It may contain grammatical, syntax or spelling errors. Electronically signed by: Edd Ho M.D. 03/20/2022 11:49 AM Cholangiopancreatography MRI 03/20/22 15:20 MR MRCP HISTORY: 56 years-old Female ?choledoco acute nausea with mid abdominal pain COMPARISON: CT and abdominal ultrasound studies of same day TECHNIQUE: MRCP without the use of IV contrast was obtained. FINDINGS: Pals Nurse localizer images demonstrate no gross extra abdominal abnormality. Lumbar levoscoliosis. Lower chest is unremarkable. Motion degraded exam. Unremarkable spleen, pancreas, adrenal glands and liver. No bowel obstruction or bowel wall thickening. Cholecystectomy. No pancreatic ductal dilation or pancreatic divisum. Common bile duct measures up to 9 mm. No biliary stricture or choledocholithiasis. Unremarkable kidneys. IMPRESSION: 1. Motion degraded exam. 2. Cholecystectomy with likely postsurgical mild biliary ductal dilation redemonstrated. 3. No choledocholithiasis identified. ACT 112: Negative or not required by law. The above report was generated using voice recognition software. It may contain grammatical, syntax or spelling errors. Electronically signed by: Edd Ho M.D. 03/20/2022 5:33 PM Endo Retro Cholangiopancreatogram 03/21/22 00:00 [place] ERCP biliary ductal CLINICAL HISTORY: ERCP COMPARISON STUDY: CT of the abdomen and pelvis and MRCP March 20, 2022. FLUOROSCOPY TIME: 26 seconds. FLUOROSCOPIC IMAGES: 6 FINDINGS: Fluoroscopy was provided during ERCP. Pancreatic duct stent was placed. Balloon sweep through the common bile duct was performed. IMPRESSION: Fluoroscopy provided during ERCP. ACT 112: Negative or not required by law. Electronically signed by: Quan Sainz M.D. 03/21/2022 1:58 PM Hospital Course (1) Choledocholithiasis with obstruction: The patient presented with severe RUQ and epigastric abdominal pain along with abnormal LFTs in an obstructive pattern. Her symptoms were very reminiscent of her acute cholecystitis pain years earlier. Choledocholithiasis was suspected. She was admitted for IVF and pain control along with [facility] consultation. She remained hemodynamically stable while here. On 03/21/22 she underwent EUS/ERCP by Dr Genaro Vidales. Both confirmed the presence of a CBD stone. No cholangitis was seen during the ERCP. The CBD stone was removed, and a pancreatic duct stent was placed for prophylaxis against ERCP-induced pancreatitis. Post-op clear liquids were started and she tolerated such. Diet was advanced without difficulty. LFTs improved following her ERCP. She will need f/u in 1 month for abdominal x-ray to ensure migration of her pancreatic duct stent. If no migration is seen she will need repeat procedure for retrieval. Repeat LFTs in 1 week post-discharge will also be needed to ensure normalization of her LFTs. (2) Abnormal LFTs: 2nd to #1 above. post-ERCP her LFTs improved nicely with normalization of her bilirubin and decrease in AST/ALT. she will need repeat LFTs in about 1 week post-discharge to ensure complete nor malization. (3) Hypertension: Cont home meds including lisinopril-HCTZ and atenolol. (4) Hypothyroidism: TSH was 0.7. Continue synthroid 100mcg daily. (5) Laryngopharyngeal reflux: Continue PPI. Total Time Total Time Spent Total Time Spent (In Minutes): 25 Discharge Plan Discharge Items Patient Disposition: Home - Self-Care Reason For Visit: Severe abdominal pain Discharge Diagnosis: Severe abdominal pain due to "choledocholithiasis" - gallstone in your common bile duct. Resolved - ERCP procedure removed the stone. Activity: As commented below Activity Comment: light activities x 2 days then resume normal activity Driving/Machine Use: Resume 1 day after discharge Non-emergency contact: Primary Care Provider and [employer] Applier Call non-emergency contact if: you have any medication questions, your symptoms worsen, your pain is unusual for you, your pain is concerning for you and you have a fever Follow-up/Referrals: Barb Sainz MD [Primary Care Provider] - 03/31/22 Genaro Vidales MD [Physician] - (you will need a follow-up abdominal x-ray in 1 month to check the location of the stent placed during your ERCP procedure ) Diet: Low Fat Addtl Attending Provider Instructions: Mrs Garcia, You were hospitalized at [facility] due to severe abdominal pain along with elevated liver function tests. There was concern that perhaps you had a gallstone stuck in your common bile duct. Even though your gall bladder is gone you can still develop a gallstone years later. You were seen by [facility], and on 03/21 Dr Vidales performed ERCP procedure. This showed that there was indeed a stone in your bile duct. The stone was removed. A small stent was placed in the duct leading to your pancreas as a preventative action. Your liver function tests have improved nicely and your abdominal pain has resolved. You have been resumed on a diet and have tolerated this well. Recommendations - 1. low fat diet for about 1 week - see handout 2. no anti-inflammatory pills - this includes aspirin, motrin, ibuprofen, naprosyn, naproxen, alleve - for the next 5 days 3. ok to take occasional tylenol as needed for pain/discomfort 4. please HOLD your simvastatin today only; you can resume it tomorrow on 03/23/2022 Follow-up - * see Dr Sainz as scheduled on 03/31/22 * see [facility] in 1 month for abdominal x-ray; they will be contacting you to schedule this x-ray Return to [facility] if - * you develop fevers over 100 degrees * you have recurrent abdominal pains * you have nausea/vomiting * you start to see yellowing of your eyes or face * any other concerns It was our pleasure caring for you! Dr Hoskins Pending Studies at Discharge: No Stand-Alone Forms: My [facility], Smoking Cessation Medications and DC Order Prescriptions: Continued levothyroxine 100 mcg tablet 100 mcg PO DAILY Qty: 90 3RF potassium chloride 20 mEq tablet extended release 20 meq PO DAILY Qty: 90 1RF atenolol 50 mg tablet 50 mg PO DAILY Qty: 90 1RF simvastatin 20 mg tablet 20 mg PO DAILY Qty: 90 1RF lisinopril-hydrochlorothiazide 20-12.5 mg tablet 1 tab PO DAILY Qty: 90 3RF omeprazole 20 mg capsule,delayed release(DR/EC) 20 mg PO BID PRN (Reason: Heartburn) Qty: 60 Discontinued naproxen 500 mg tablet 500 mg PO BID PRN (Reason: pain) Qty: 60 3RF Discharge Orders: Discharge Order (Routine); Ordered 03/22/22 Ordered By: Lauri Owusu/Other Patient Handouts: ED Diet, Low Fat Admission Data Admit Date/Time: 03/20/22 12:42 Attending Provider: Lauri Hoskins Admit Provider: Sarmad Weston Primary Care Provider: Barb Sainz Other Providers: Sarmad Weston ; Genaro Vidales Other Interventions: Discharge Summary Assessment (RN) Last Done: 03/22/22 12:57 Coding Level of Care Code D/C DAY MANAGEMENT <30 MINS Diagnoses Choledocholithiasis with obstruction K80.51 Abnormal LFTs R79.89 Hypertension I10 Hypothyroidism E03.9 Laryngopharyngeal reflux K21.9
== END 2022-03-22 14:01 | disposition home or self-care (01) ==
LOC: ED 08:48 → 3W 08:48 → SUATTDRO 12:42 → 3W 14:35